=== PATIENT | female | born 1995 | race Caucasian/White ===

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

== ENCOUNTER → 2017-01-09 | Outpatient (CLI) | payer BC, OTHER, MEDICAID | LOC: M WUC 14:23 | PROVIDERS: ATTEND Registered Nurse Psychiatric/Mental Health | DX: F31.9 Bipolar disorder, unspecified (principal) ==

== ENCOUNTER → 2017-01-24 | Outpatient (CLI) | payer BC, OTHER, MEDICAID ==
[2017-01-24 18:33] LABS: BASO % 0.3 % (0.0-1.0); EOS # 0.1 K/mm3 (0.0-0.50); EOS % 1.1 % (0.0-3.0); LARGE UNSTAINED CELL # 0.1 K/mm3 (0.0-0.4); LARGE UNSTAINED CELL % 1.2 % (0.0-4.0); LYMPH # 1.5 K/mm3 (1.5-6.5); LYMPH % 17.9 % (24.0-44.0); MEAN CORPUSCULAR HEMOGLOBIN 28.9 pg (27.0-33.0); MEAN CORPUSCULAR HGB CONC 36.2 g/dl (32.0-36.5); MEAN CORPUSCULAR VOLUME 79.8 fl (80.0-96.0); MONO # 0.4 K/mm3 (0.0-0.8); NEUTROPHILS # 6.3 K/mm3 (1.8-7.7); NEUTROPHILS % 74.6 % (36.0-66.0); PLATELET COUNT, AUTOMATED 194 k/mm3 (150-450); RED CELL DISTRIBUTION WIDTH 13.2 % (11.5-14.5); WHITE BLOOD COUNT 8.5 K/mm3 (4.0-10.0)
[2017-01-26 07:43] LABS: HBsAg Prenatal NEGATIVE (NEGATIVE)
== END ==
LOC: M WUC 13:07
PROVIDERS: ATTEND Specialist
DX: Z34.81 Encounter for supervision of other normal pregnancy, first trimester (principal)

== ENCOUNTER → 2017-01-26 | Outpatient (REF) | payer OTHER, MEDICAID | LOC: M LAB REF 13:13 | PROVIDERS: ATTEND Specialist | DX: Z34.81 Encounter for supervision of other normal pregnancy, first trimester (principal) ==

== ENCOUNTER → 2017-04-04 | Outpatient (CLI) | payer BC, OTHER, MEDICAID ==
--- NOTE | 2017-04-04 11:53 | REP ---
Clinical: Anatomical evaluation. Comparison: None . Findings: Examination demonstrates a single live intrauterine in cephalic presentation. motion is identified by technologist. Placenta is noted anteriorly and grade zero without evidence for placenta previa or abruption. Amniotic fluid volume is normal. Cervix measures 3.5 cm in length and appears closed. No evidence for nuchal cord. Gestational age by current measurements 18 weeks 4 days with NANCY 09/01/2017 . FHR equals 150 beats per minute. BPD 4.4 cm 19 weeks 2 days HC 15.4 cm 18 weeks 3 days AC 12.7 cm 18 weeks 2 days FL 2.8 cm 18 weeks 4 days HL 2.8 cm 18 weeks 6 days HC/AC ratio 1.22 Estimated weight 241 grams ( 44 percentile). Anatomical assessment demonstrates normal structures including cranium, choroid plexus, cavum, cerebellum/posterior fossa, facial features, lungs, diaphragm, stomach, three-vessel cord, kidneys/bladder, spine, and upper extremities. Impression: 1. Single live intrauterine in cephalic presentation demonstrating appropriate weight. 2. Limited evaluation of the heart/cardiac ventricular outflow tracts, cord insertion, and lower extremities may warrant reevaluation and follow-up. Remainder of the anatomical assessment is complete and normal. Signed by Ramon Lima MD 04/04/2017 11:44 A
== END ==
LOC: M SMT 10:07
PROVIDERS: ATTEND Advanced Practice Midwife
DX: Z36.89 Encounter for other specified antenatal screening (principal); Z3A.18 18 weeks gestation of pregnancy

== ENCOUNTER → 2017-04-26 | Outpatient (CLI) | payer BC, OTHER, MEDICAID ==
--- NOTE | 2017-04-27 06:38 | REP ---
FOLLOWUP OBSTETRICAL ULTRASOUND: CLINICAL: Anatomical re-evaluation. COMPARISON: 04/04/2017. FINDINGS: Ultrasound examination demonstrates single live intrauterine in cephalic presentation. motion was identified by technologist. Placenta is noted anteriorly and grade 1 without evidence for placenta previa or abruption. Amniotic fluid volume is normal. Cervix measures 3.5 cm in length and appears closed. No evidence for nuchal cord. Gestational age by first ultrasound 21 weeks 5 days with estimated date of delivery 09/01/2017. FHR 150 beats per minute. Estimated weight 420 grams (37th percentile). Anatomical assessment is complete and normal. Visualized structures include cranium, choroid plexus, cavum, cerebellum/posterior fossa, facial features, lungs, four chamber heart/ventricular outflow tract, diaphragm, stomach, cord insertion/three vessel cord, kidneys/bladder, spine and extremities. IMPRESSION: Single live intrauterine in cephalic presentation demonstrating appropriate interval growth. Anatomical assessment is complete and normal. No gross abnormalities are identified. Signed by Ramon Lima MD 04/28/2017 08:43 A
== END ==
LOC: M SMT 12:57
PROVIDERS: ATTEND Advanced Practice Midwife
DX: Z36.9 Encounter for antenatal screening, unspecified (principal); Z3A.21 21 weeks gestation of pregnancy

== ENCOUNTER → 2017-05-22 | Outpatient (CLI) | payer MEDICARE, MEDICAID, BC, OTHER ==
[2017-05-22 13:38] LABS: HEMATOCRIT 35.4 % (36.0-47.0); HEMOGLOBIN 12.3 g/dl (12.0-16.0); MEAN CORPUSCULAR HEMOGLOBIN 29.6 pg (27.0-33.0); MEAN CORPUSCULAR HGB CONC 34.7 g/dl (32.0-36.5); MEAN CORPUSCULAR VOLUME 85.1 fl (80.0-96.0); PLATELET COUNT, AUTOMATED 147 10^3/uL (150-450); RED BLOOD COUNT 4.16 10^6/uL (4.00-5.40); RED CELL DISTRIBUTION WIDTH 13.2 % (11.5-14.5); WHITE BLOOD COUNT 7.8 10^3/uL (4.0-10.0)
[2017-05-22 13:53] LABS: GLUCOSE CHALLENGE TEST 1 HOUR 146 MG/DL (LESS THAN 140)
== END ==
LOC: M SMT 10:28
DX: Z34.82 Encounter for supervision of other normal pregnancy, second trimester (principal)
CPT/HCPCS: 82950

== ENCOUNTER → 2017-06-01 | Outpatient (CLI) | payer BC, MEDICARE, OTHER, MEDICAID ==
[2017-06-01 09:01] LABS: GLUCOSE, FASTING 90 MG/DL (LESS THAN 95)
[2017-06-01 10:24] LABS: 1 HR GLUCOSE 131 MG/DL (LESS THAN 180)
[2017-06-01 11:44] LABS: 3 HR GLUCOSE 117 MG/DL (LESS THAN 140)
[2017-06-01 12:23] LABS: 2 HR GLUCOSE 145 MG/DL (LESS THAN 155)
== END ==
LOC: M LAB 07:53
DX: Z34.82 Encounter for supervision of other normal pregnancy, second trimester (principal); Z3A.00 Weeks of gestation of pregnancy not specified
CPT/HCPCS: 82951

== ENCOUNTER 2017-07-12 19:18 | Emergency (ER) | payer BC, MEDICARE, OTHER, MEDICAID ==
[2017-07-12] MEDS: NS 1,000 ML IV ×2 (20:19)
[2017-07-12] MEDS: diphenhydrAMINE INJ 50MG/ML VIAL (J1200) IV ×2 (20:35)
[2017-07-12 20:42] LABS: BASO % 0.2 % (0.0-1.0); EOS # 0.1 10^3/uL (0.0-0.50); EOS % 0.9 % (0.0-3.0); HEMATOCRIT 37.5 % (36.0-47.0); HEMOGLOBIN 12.8 g/dl (12.0-16.0); IMMATURE GRANULOCYTE % 1.2 % (0-3.0); LYMPH # 1.9 10^3/uL (1.5-6.5); LYMPH % 19.4 % (24.0-44.0); MEAN CORPUSCULAR HEMOGLOBIN 29.2 pg (27.0-33.0); MEAN CORPUSCULAR HGB CONC 34.1 g/dl (32.0-36.5); MEAN CORPUSCULAR VOLUME 85.4 fl (80.0-96.0); MONO # 0.9 10^3/uL (0.0-0.8); NEUTROPHILS # 6.9 10^3/uL (1.8-7.7); NEUTROPHILS % 69.3 % (36.0-66.0); PLATELET COUNT, AUTOMATED 187 10^3/uL (150-450); RED BLOOD COUNT 4.39 10^6/uL (4.00-5.40); RED CELL DISTRIBUTION WIDTH 13.6 % (11.5-14.5); WHITE BLOOD COUNT 9.9 10^3/uL (4.0-10.0)
[2017-07-12 21:07] LABS: ALBUMIN 3.1 GM/DL (3.2-5.2); ALBUMIN/GLOBULIN RATIO 0.86 (1.00-1.93); ALKALINE PHOSPHATASE 142 U/L (45-117); ALT/SGPT 12 U/L (12-78); ANION GAP 10 MEQ/L (8-16); AST/SGOT 21 U/L (7-37); BILIRUBIN,TOTAL 0.3 MG/DL (0.2-1.0); BLOOD UREA NITROGEN 9 MG/DL (7-18); CALCIUM LEVEL 9.3 MG/DL (8.5-10.1); CARBON DIOXIDE LEVEL 23 MEQ/L (21-32); CHLORIDE LEVEL 106 MEQ/L (98-107); CREATININE FOR GFR 0.51 MG/DL (0.55-1.30); GLUCOSE, FASTING 88 MG/DL (70-100); LIPASE 81 U/L (73-393); POTASSIUM SERUM 4.5 MEQ/L (3.5-5.1); SODIUM LEVEL 139 MEQ/L (136-145); TOTAL PROTEIN 6.7 GM/DL (6.4-8.2)
[2017-07-12] MEDS ORDERED: PANTOPRAZOLE SODIUM 40 MG in D5W 50 ML IV (21:15)
[2017-07-12] MEDS: ACETAMINOPHEN 325 MG TAB PO ×2 (21:15)
[2017-07-12 22:25] LABS: KETONE, URINE AUTO RFX NEGATIVE (NEGATIVE); LEUKOCYTE ESTERASE UR AUTO RFX NEGATIVE (NEGATIVE); NITRITE, URINE AUTO RFX NEGATIVE (NEGATIVE); RBC, URINE AUTO RFX 0 /HPF (0-3); SPECIFIC GRAVITY UR AUTO RFX 1.002 (1.002-1.035); SQUAM EPITHELIAL CELL UR AURFX 4 /HPF (0-6); WBC, URINE AUTO RFX 1 /HPF (0-3)
== END 2017-07-12 22:25 | disposition home or self-care (01) ==
LOC: M ED 19:18
DX: O21.9 Vomiting of pregnancy, unspecified (principal); Z3A.33 33 weeks gestation of pregnancy; Z79.899 Other long term (current) drug therapy; Z88.8 Allergy status to other drugs, medicaments and biological substances; Z91.040 Latex allergy status; O99.333 Smoking (tobacco) complicating pregnancy, third trimester; F17.210 Nicotine dependence, cigarettes, uncomplicated
CPT/HCPCS: J1200

== ENCOUNTER 2017-08-01 18:37 | Outpatient (CLI) | payer BC, MEDICARE, OTHER, MEDICAID | END 2017-08-01 23:25 | disposition home or self-care (01) | LOC: M LDO 18:37 | DX: O47.03 False labor before 37 completed weeks of gestation, third trimester (principal); Z3A.35 35 weeks gestation of pregnancy; N89.8 Other specified noninflammatory disorders of vagina; O26.893 Other specified pregnancy related conditions, third trimester; Z88.8 Allergy status to other drugs, medicaments and biological substances; Z91.040 Latex allergy status | CPT/HCPCS: 59025 ==

== ENCOUNTER → 2017-08-03 | Outpatient (REF) | payer MEDICARE, OTHER, MEDICAID | LOC: M LAB REF 13:08 | DX: Z34.83 Encounter for supervision of other normal pregnancy, third trimester (principal); Z3A.00 Weeks of gestation of pregnancy not specified | CPT/HCPCS: 87081 ==

== ENCOUNTER 2017-08-16 17:53 | Outpatient (CLI) | payer MEDICARE, BC, OTHER, MEDICAID ==
[2017-08-16] MEDS: MORPHINE 10 MG/ML 1ML VIAL (J2270) SC (21:46)
[2017-08-16] MEDS: PROMETHAZINE INJ 25 MG/ML VIAL (J2550) IM (21:48)
== END 2017-08-17 09:12 | disposition home or self-care (01) ==
LOC: M LDO 17:53
DX: O47.1 False labor at or after 37 completed weeks of gestation (principal); Z3A.38 38 weeks gestation of pregnancy
CPT/HCPCS: J2270

== ENCOUNTER 2017-08-20 02:15 | Inpatient (IN) | payer MEDICARE, BC, OTHER, MEDICAID ==
[2017-08-20] MEDS: LACTATED RINGER'S 1000 ML IV (03:25)
[2017-08-20] MEDS ORDERED: MORPHINE 10 MG/ML 1ML VIAL (J2270) SC (03:45)
[2017-08-20] MEDS: PROMETHAZINE INJ 25 MG/ML VIAL (J2550) IV (03:53)
[2017-08-20] MEDS: BUTORPHANOL 2 MG/ML INJ (J0595) IV (03:54)
[2017-08-20] MEDS: LR 1,000 ML IV ×3 (03:54→19:33)
[2017-08-20] MEDS: miSOPROStol 50 MCG 1/2 TAB (S0191) SL ×4 (04:01→17:49)
[2017-08-20 04:03] LABS: HEMATOCRIT 37.9 % (36.0-47.0); HEMOGLOBIN 13.1 g/dl (12.0-15.5); MEAN CORPUSCULAR HEMOGLOBIN 29.4 pg (27.0-33.0); MEAN CORPUSCULAR HGB CONC 34.6 g/dl (32.0-36.5); MEAN CORPUSCULAR VOLUME 85.2 fl (80.0-96.0); PLATELET COUNT, AUTOMATED 141 10^3/uL (150-450); RED BLOOD COUNT 4.45 10^6/uL (4.00-5.40); RED CELL DISTRIBUTION WIDTH 13.6 % (11.5-14.5); WHITE BLOOD COUNT 14.4 10^3/uL (4.0-10.0)
[2017-08-20 04:30] LABS: ALT/SGPT 105 U/L (12-78); AST/SGOT 131 U/L (7-37); BILIRUBIN,TOTAL 0.5 MG/DL (0.2-1.0); CREATININE FOR GFR 0.89 MG/DL (0.55-1.30); LDH LACTATE DEHYDROGENASE 348 U/L (84-246)
[2017-08-20 07:02] LABS: AMPHETAMINES URINE REFLEX NEGATIVE (NEGATIVE); BARBITURATES URINE REFLEX NEGATIVE (NEGATIVE); BENZODIAZEPINES URINE REFLEX NEGATIVE (NEGATIVE); CANNABINOIDS URINE REFLEX NEGATIVE (NEGATIVE); COCAINE METABOLITE URINE REFLE NEGATIVE (NEGATIVE); METHADONE URINE REFLEX NEGATIVE (NEGATIVE); OPIATES URINE REFLEX NEGATIVE (NEGATIVE); PHENCYCLIDINE URINE REFLEX NEGATIVE (NEGATIVE)
[2017-08-20 07:03] LABS: TOTAL PROTEIN,RANDOM URINE 71.8 MG/DL (0.0-12.0)
[2017-08-20 19:22] LABS: HEMATOCRIT 35.7 % (36.0-47.0); HEMOGLOBIN 12.6 g/dl (12.0-15.5); MEAN CORPUSCULAR HEMOGLOBIN 30.2 pg (27.0-33.0); MEAN CORPUSCULAR HGB CONC 35.3 g/dl (32.0-36.5); MEAN CORPUSCULAR VOLUME 85.6 fl (80.0-96.0); RED BLOOD COUNT 4.17 10^6/uL (4.00-5.40); RED CELL DISTRIBUTION WIDTH 13.8 % (11.5-14.5); WHITE BLOOD COUNT 11.8 10^3/uL (4.0-10.0)
[2017-08-20] MEDS: LURASIDONE HCL 40 MG TAB (LATUDA) PO (19:28)
[2017-08-20 19:43] LABS: PLATELET COUNT, AUTOMATED 58 10^3/uL (150-450); POS COUNT POS FLAG
[2017-08-20 19:44] LABS: IMMATURE PLATELET FRACTION % 11.3 % (0.0-9.6)
[2017-08-20 19:48] LABS: ALT/SGPT 197 U/L (12-78); AST/SGOT 202 U/L (7-37); BILIRUBIN,TOTAL 0.9 MG/DL (0.2-1.0); CREATININE FOR GFR 0.79 MG/DL (0.55-1.30); LDH LACTATE DEHYDROGENASE 441 U/L (84-246); URIC ACID 6.1 MG/DL (2.6-6.0)
[2017-08-20] MEDS ORDERED: LR 1,000 ML IV ×2 (20:44→22:30)
[2017-08-20] MEDS ORDERED: LACTATED RINGER'S 1000 ML IV (20:44)
[2017-08-20 20:51] LABS: HEMATOCRIT 33.5 % (36.0-47.0); HEMOGLOBIN 11.7 g/dl (12.0-15.5); MEAN CORPUSCULAR HEMOGLOBIN 30.2 pg (27.0-33.0); MEAN CORPUSCULAR HGB CONC 34.9 g/dl (32.0-36.5); MEAN CORPUSCULAR VOLUME 86.3 fl (80.0-96.0); RED BLOOD COUNT 3.88 10^6/uL (4.00-5.40); RED CELL DISTRIBUTION WIDTH 13.8 % (11.5-14.5); WHITE BLOOD COUNT 11.3 10^3/uL (4.0-10.0)
[2017-08-20 20:53] LABS: ADD MANUAL DIFFER YES; DIFF SLIDE NUMBER 360; PLATELET COUNT, AUTOMATED 47 10^3/uL (150-450)
[2017-08-20] MEDS ORDERED: PROPOFOL 200 MG/20 ML VIAL As Ordered (20:56)
[2017-08-20] MEDS ORDERED: SUCCINYLCHOLINE 100 MG/5 ML SYRINGE (J0330) As Ordered (20:56)
[2017-08-20] MEDS ORDERED: ONDANSETRON 4MG/2ML VIAL (J2405) As Ordered (20:56)
[2017-08-20] MEDS ORDERED: METOCLOPRAMIDE INJ 10MG/2ML VIAL (J2765) As Ordered (20:56)
[2017-08-20] MEDS ORDERED: MIDAZOLAM INJ 2 MG/2 ML VIAL (J2250) As Ordered (20:56)
[2017-08-20] MEDS ORDERED: fentaNYL 100 MCG/2 ML INJECTION (J3010) As Ordered ×3 (20:57→22:16)
[2017-08-20] MEDS: BICITRA 30ML SOLN UDC PO (21:01)
[2017-08-20 21:08] LABS: BANDS 3 % (< 11); EOSINOPHILS 3 % (0-5); LYMPHOCYTES 11 % (16-52); METAMYELOCYTES 4 % (0-0); MONOCYTES 5 % (0-8); MYELOCYTES 1 % (0-0); NEUTROPHILS 73 % (35-75)
[2017-08-20 21:09] LABS: PLATELET ESTIMATE DECREASED (NORMAL)
[2017-08-20 21:32] LABS: IMMEDIATE SPIN CROSSMATCH 1 2
[2017-08-20 21:45] LABS: CORD GAS HCO3 A 34.8 MEQ/L; CORD GAS O2 SAT A < 15.0 %; CORD GAS PCO2 A 92.1 mmHg; CORD GAS PH A 7.195 UNITS; CORD GAS PO2 A < 10.0 mmHg; CORD GAS TCO2 A 37.6 MEQ/L
[2017-08-20 21:47] LABS: CORD GAS ABE V -0.1; CORD GAS PCO2 V 69.1 mmHg; CORD GAS PH V 7.255 UNITS; CORD GAS TCO2 V 32.1 MEQ/L
[2017-08-20] MEDS ORDERED: NS 1,000 ML IV (22:12)
[2017-08-20] MEDS ORDERED: NALBUPHINE HCL 10 MG/ML AMP (J2300) IV (22:15)
[2017-08-20] MEDS ORDERED: MOM 30ML SUSPENSION UDC PO (22:15)
[2017-08-20] MEDS ORDERED: ONDANSETRON 4MG/2ML VIAL (J2405) IV ×2 (22:15→22:30)
[2017-08-20] MEDS ORDERED: EPIDURAL/PCA KEYS XX (22:15)
[2017-08-20] MEDS ORDERED: NALOXONE INJ 0.4 MG/1 ML VIAL (J2310) IV (22:15)
[2017-08-20] MEDS: OXYTOCIN DRIP 30 UNITS in APPROPRIATE DILUENT 1 EA IV (22:15)
[2017-08-20] MEDS ORDERED: diphenhydrAMINE INJ 50MG/ML VIAL (J1200) IV (22:15)
[2017-08-20] MEDS ORDERED: CALCIUM GLUCONATE 1,000 MG in D5W MINI-BAG PLUS 100 ML IV (22:15)
[2017-08-20] MEDS: MAG Sulf (L&D) 4 GM/100 ML 4 GM in APPROPRIATE DILUENT 1 EA IV (22:15)
[2017-08-20] MEDS ORDERED: DOCUSATE SODIUM 100 MG CAP PO ×2 (22:15)
[2017-08-20] MEDS: fentaNYL 100 MCG/2 ML INJECTION (J3010) IV ×2 (22:20→22:50)
[2017-08-20] MEDS ORDERED: MAGNESIUM *L&D* 4 GM/100 ML BAG (40MG/ML) (J3475) As Ordered (22:23)
[2017-08-20] MEDS ORDERED: MAGNESIUM SULFATE 4% INJ 20GM/500ML (40MG/ML) (J3475) As Ordered (22:24)
[2017-08-20] MEDS ORDERED: OXYTOCIN 30 UNITS IN 0.9% NaCl 500ML IV BAG (J2590) As Ordered (22:25)
[2017-08-20] MEDS ORDERED: PERCOCET 5MG/325MG TAB PO (22:30)
[2017-08-20] MEDS ORDERED: METOCLOPRAMIDE INJ 10MG/2ML VIAL (J2765) IV (22:30)
[2017-08-20] MEDS ORDERED: MEPERIDINE INJ 25 MG/ML VIAL (J2175) IV (22:30)
[2017-08-20] MEDS ORDERED: MORPHINE 1MG/ML IN 0.9% NACL 100ML IV BAG As Ordered (22:48)
[2017-08-20] MEDS: MORPHINE 1MG/ML IN 0.9% NACL 100ML IV BAG IV (23:06)
[2017-08-21 02:40] LABS: HEMATOCRIT 33.3 % (36.0-47.0); HEMOGLOBIN 11.5 g/dl (12.0-15.5); MEAN CORPUSCULAR HEMOGLOBIN 29.4 pg (27.0-33.0); MEAN CORPUSCULAR HGB CONC 34.5 g/dl (32.0-36.5); MEAN CORPUSCULAR VOLUME 85.2 fl (80.0-96.0); RED BLOOD COUNT 3.91 10^6/uL (4.00-5.40); RED CELL DISTRIBUTION WIDTH 13.9 % (11.5-14.5); WHITE BLOOD COUNT 12.2 10^3/uL (4.0-10.0)
[2017-08-21 02:42] LABS: PLATELET COUNT, AUTOMATED 45 10^3/uL (150-450)
[2017-08-21 02:55] LABS: ALT/SGPT 128 U/L (12-78); AST/SGOT 111 U/L (7-37); BILIRUBIN,TOTAL 0.6 MG/DL (0.2-1.0); CREATININE FOR GFR 0.71 MG/DL (0.55-1.30); LDH LACTATE DEHYDROGENASE 422 U/L (84-246); URIC ACID 5.1 MG/DL (2.6-6.0)
[2017-08-21 06:34] LABS: HEMATOCRIT 25.5 % (36.0-47.0); MEAN CORPUSCULAR HEMOGLOBIN 30.3 pg (27.0-33.0); MEAN CORPUSCULAR HGB CONC 35.3 g/dl (32.0-36.5); MEAN CORPUSCULAR VOLUME 85.9 fl (80.0-96.0); RED BLOOD COUNT 2.97 10^6/uL (4.00-5.40); RED CELL DISTRIBUTION WIDTH 13.8 % (11.5-14.5); WHITE BLOOD COUNT 13.9 10^3/uL (4.0-10.0)
[2017-08-21 07:01] LABS: PLATELET COUNT, AUTOMATED 48 10^3/uL (150-450); POS COUNT POS FLAG
[2017-08-21 07:10] LABS: ALT/SGPT 102 U/L (12-78); AST/SGOT 84 U/L (7-37); BILIRUBIN,TOTAL 0.5 MG/DL (0.2-1.0); CREATININE FOR GFR 0.69 MG/DL (0.55-1.30); LDH LACTATE DEHYDROGENASE 374 U/L (84-246); URIC ACID 5.4 MG/DL (2.6-6.0)
[2017-08-21 07:12] LABS: MAGNESIUM LEVEL 5.2 MG/DL (1.8-2.4)
[2017-08-21] MEDS: MAG Sulf (OBGYN) 20GM/500ML 20,000 MG in APPROPRIATE DILUENT 1 EA IV (09:25)
[2017-08-21] MEDS: LR 1,000 ML IV ×2 (11:32→17:13)
[2017-08-21 12:02] LABS: BASO % 0.2 % (0.0-1.0); EOS # 0.3 10^3/uL (0.0-0.50); EOS % 2.5 % (0.0-3.0); HEMATOCRIT 25.6 % (36.0-47.0); HEMOGLOBIN 8.8 g/dl (12.0-15.5); IMMATURE GRANULOCYTE % 1.9 % (0-3.0); LYMPH # 1.4 10^3/uL (1.5-6.5); LYMPH % 11.7 % (24.0-44.0); MEAN CORPUSCULAR HEMOGLOBIN 29.8 pg (27.0-33.0); MEAN CORPUSCULAR HGB CONC 34.4 g/dl (32.0-36.5); MEAN CORPUSCULAR VOLUME 86.8 fl (80.0-96.0); MONO % 8.3 % (0.0-5.0); NEUTROPHILS # 9.1 10^3/uL (1.8-7.7); NEUTROPHILS % 75.4 % (36.0-66.0); RED BLOOD COUNT 2.95 10^6/uL (4.00-5.40); RED CELL DISTRIBUTION WIDTH 14.1 % (11.5-14.5); WHITE BLOOD COUNT 12.1 10^3/uL (4.0-10.0)
[2017-08-21 12:09] LABS: PLATELET COUNT, AUTOMATED 42 10^3/uL (150-450)
[2017-08-21 12:42] LABS: ALT/SGPT 106 U/L (12-78); AST/SGOT 91 U/L (7-37); BILIRUBIN,TOTAL 0.7 MG/DL (0.2-1.0); CREATININE FOR GFR 0.74 MG/DL (0.55-1.30); LDH LACTATE DEHYDROGENASE 415 U/L (84-246)
[2017-08-21] MEDS: RHOGAM 300 MCG (1500 IU) INJ (J2790) IM ×2 (16:42→16:44)
[2017-08-21] MEDS: MEASLES,MUMPS,RUBELLA VACCINE INJ (MMR-II) (90707) SC (16:49)
[2017-08-21] MEDS: PRENATAL VITAMINS CHEWABLE TABLET PO (18:21)
[2017-08-21] MEDS ORDERED: PERCOCET 5MG/325MG TAB PO (22:15)
[2017-08-21] MEDS: PERCOCET 5MG/325MG TAB PO (22:29)
[2017-08-22] MEDS: PERCOCET 5MG/325MG TAB PO (05:14)
[2017-08-22 06:09] LABS: HEMATOCRIT 24.1 % (36.0-47.0); HEMOGLOBIN 8.2 g/dl (12.0-15.5); MEAN CORPUSCULAR HEMOGLOBIN 29.2 pg (27.0-33.0); MEAN CORPUSCULAR VOLUME 85.8 fl (80.0-96.0); RED BLOOD COUNT 2.81 10^6/uL (4.00-5.40); RED CELL DISTRIBUTION WIDTH 14.2 % (11.5-14.5); WHITE BLOOD COUNT 8.9 10^3/uL (4.0-10.0)
[2017-08-22 06:13] LABS: PLATELET COUNT, AUTOMATED 28 10^3/uL (150-450); POS COUNT POS FLAG
[2017-08-22 06:14] LABS: ALT/SGPT 121 U/L (12-78); AST/SGOT 103 U/L (7-37); BILIRUBIN,TOTAL 0.8 MG/DL (0.2-1.0); CREATININE FOR GFR 0.67 MG/DL (0.55-1.30); LDH LACTATE DEHYDROGENASE 565 U/L (84-246); PLATELET F 28; URIC ACID 5.8 MG/DL (2.6-6.0)
[2017-08-22] MEDS: PRENATAL VITAMINS CHEWABLE TABLET PO (09:13)
[2017-08-22] MEDS: oxyCODONE 5MG TAB PO ×4 (10:25→20:50)
[2017-08-22] MEDS ORDERED: LOPERAMIDE 2 MG CAP PO (11:15)
[2017-08-22 11:16] LABS: HEMATOCRIT 26.4 % (36.0-47.0); HEMOGLOBIN 9.2 g/dl (12.0-15.5); MEAN CORPUSCULAR HEMOGLOBIN 30.3 pg (27.0-33.0); MEAN CORPUSCULAR HGB CONC 34.8 g/dl (32.0-36.5); MEAN CORPUSCULAR VOLUME 86.8 fl (80.0-96.0); RED BLOOD COUNT 3.04 10^6/uL (4.00-5.40); RED CELL DISTRIBUTION WIDTH 14.5 % (11.5-14.5); WHITE BLOOD COUNT 15.1 10^3/uL (4.0-10.0)
[2017-08-22] MEDS: CARBOPROST TROMETHAMINE 250 MCG/ML AMP IM (11:17)
[2017-08-22 11:28] LABS: PLATELET COUNT, AUTOMATED 36 10^3/uL (150-450)
[2017-08-22] MEDS: LURASIDONE HCL 40 MG TAB (LATUDA) PO ×3 (20:33→20:49)
[2017-08-23] MEDS: LR 1,000 ML IV ×3 (03:32→19:28)
[2017-08-23] MEDS: oxyCODONE 5MG TAB PO ×3 (04:15→21:37)
[2017-08-23 07:50] LABS: ALT/SGPT 85 U/L (12-78); AST/SGOT 41 U/L (7-37); BILIRUBIN,TOTAL 0.5 MG/DL (0.2-1.0); CREATININE FOR GFR 0.81 MG/DL (0.55-1.30); LDH LACTATE DEHYDROGENASE 314 U/L (84-246); URIC ACID 6.4 MG/DL (2.6-6.0)
[2017-08-23] MEDS: PRENATAL VITAMINS CHEWABLE TABLET PO (07:50)
[2017-08-23] MEDS: IBUPROFEN 800 MG TAB PO (14:09)
[2017-08-23] MEDS: LURASIDONE HCL 40 MG TAB (LATUDA) PO (23:27)
[2017-08-24 07:16] LABS: HEMOGLOBIN 8.4 g/dl (12.0-15.5); MEAN CORPUSCULAR HEMOGLOBIN 29.8 pg (27.0-33.0); MEAN CORPUSCULAR HGB CONC 33.6 g/dl (32.0-36.5); MEAN CORPUSCULAR VOLUME 88.7 fl (80.0-96.0); PLATELET COUNT, AUTOMATED 83 10^3/uL (150-450); RED BLOOD COUNT 2.82 10^6/uL (4.00-5.40); RED CELL DISTRIBUTION WIDTH 14.4 % (11.5-14.5); WHITE BLOOD COUNT 8.4 10^3/uL (4.0-10.0)
[2017-08-24 07:17] LABS: IMMATURE PLATELET FRACTION % 11.4 % (0.0-9.6); PLATELET F 83
[2017-08-24] MEDS: IBUPROFEN 800 MG TAB PO (07:26)
[2017-08-24] MEDS: PRENATAL VITAMINS CHEWABLE TABLET PO (07:26)
[2017-08-24 07:38] LABS: ALBUMIN 2.1 GM/DL (3.2-5.2); ALBUMIN/GLOBULIN RATIO 0.57 (1.00-1.93); ALKALINE PHOSPHATASE 136 U/L (45-117); ALT/SGPT 62 U/L (12-78); ANION GAP 8 MEQ/L (8-16); AST/SGOT 31 U/L (7-37); BILIRUBIN,TOTAL 0.3 MG/DL (0.2-1.0); BLOOD UREA NITROGEN 14 MG/DL (7-18); CALCIUM LEVEL 8.2 MG/DL (8.5-10.1); CARBON DIOXIDE LEVEL 24 MEQ/L (21-32); CHLORIDE LEVEL 110 MEQ/L (98-107); CREATININE FOR GFR 0.72 MG/DL (0.55-1.30); GLUCOSE, FASTING 83 MG/DL (70-100); LDH LACTATE DEHYDROGENASE 207 U/L (84-246); POTASSIUM SERUM 4.1 MEQ/L (3.5-5.1); SODIUM LEVEL 142 MEQ/L (136-145); TOTAL PROTEIN 5.8 GM/DL (6.4-8.2); URIC ACID 6.2 MG/DL (2.6-6.0)
[2017-08-24] MEDS: FERROUS SULFATE 325MG TAB PO (08:42)
== END 2017-08-24 17:00 | disposition home or self-care (01) | DRG 766 ==
LOC: M LDO 02:15 → M OBS 08-22 08:00 → M LDI 03:43
PROC: 10D00Z1 Extraction of Products of Conception, Low, Open Approach (ICD-10-PCS; principal; 2017-08-20 21:07)
DX: O14.24 HELLP syndrome, complicating childbirth (principal); Z37.0 Single live birth; Z88.8 Allergy status to other drugs, medicaments and biological substances; Z91.040 Latex allergy status; Z3A.39 39 weeks gestation of pregnancy

== ENCOUNTER 2017-11-29 14:03 | Inpatient (IN) | payer MEDICARE, BC, OTHER, MEDICAID ==
[2017-11-29] MEDS: NS 1,000 ML IV (14:30)
[2017-11-29 14:40] LABS: BASO % 0.3 % (0.0-1.0); EOS # 0.1 10^3/uL (0.0-0.50); EOS % 0.8 % (0.0-3.0); HEMATOCRIT 40.8 % (36.0-47.0); HEMOGLOBIN 13.9 g/dl (12.0-15.5); IMMATURE GRANULOCYTE % 0.8 % (0-3.0); LYMPH # 1.7 10^3/uL (1.5-6.5); LYMPH % 18.4 % (24.0-44.0); MEAN CORPUSCULAR HEMOGLOBIN 27.1 pg (27.0-33.0); MEAN CORPUSCULAR HGB CONC 34.1 g/dl (32.0-36.5); MEAN CORPUSCULAR VOLUME 79.7 fl (80.0-96.0); MONO # 0.8 10^3/uL (0.0-0.8); MONO % 9.3 % (0.0-5.0); NEUTROPHILS # 6.3 10^3/uL (1.8-7.7); NEUTROPHILS % 70.4 % (36.0-66.0); PLATELET COUNT, AUTOMATED 177 10^3/uL (150-450); RED BLOOD COUNT 5.12 10^6/uL (4.00-5.40); RED CELL DISTRIBUTION WIDTH 13.2 % (11.5-14.5)
[2017-11-29 14:42] LABS: VENOUS BASE EXCESS -6.7 (-2.0-2.0); VENOUS HCO3 16.1 MEQ/L (23.0-27.0); VENOUS O2 SATURATION 98.7 % (60.0-80.0); VENOUS PARTIAL PRESSURE CO2 25.1 mmHg (38.0-50.0); VENOUS PARTIAL PRESSURE O2 148.6 mmHg (30.0-50.0); VENOUS PH 7.426 UNITS (7.330-7.430); VENOUS TOTAL CO2 16.9 MEQ/L (24.0-28.0)
[2017-11-29 14:53] LABS: BEDSIDE GLUCOSE 108 MG/DL (70-105)
[2017-11-29 15:31] LABS: ALBUMIN 3.7 GM/DL (3.2-5.2); ALBUMIN/GLOBULIN RATIO 1.09 (1.00-1.93); ALKALINE PHOSPHATASE 116 U/L (45-117); ALT/SGPT 39 U/L (12-78); ANION GAP 10 MEQ/L (8-16); AST/SGOT 19 U/L (7-37); BILIRUBIN,DIRECT < 0.1 MG/DL (0.0-0.2); BILIRUBIN,TOTAL 0.4 MG/DL (0.2-1.0); BLOOD UREA NITROGEN 16 MG/DL (7-18); CALCIUM LEVEL 8.5 MG/DL (8.5-10.1); CARBON DIOXIDE LEVEL 22 MEQ/L (21-32); CHLORIDE LEVEL 109 MEQ/L (98-107); CPK CREATINE PHOSPHOKINASE 67 U/L (26-192); CREATININE FOR GFR 0.84 MG/DL (0.55-1.30); ETHYL ALCOHOL (ETHANOL) 0.007 % (0.000-0.010); GLUCOSE, FASTING 96 MG/DL (70-100); POTASSIUM SERUM 4.2 MEQ/L (3.5-5.1); SALICYLATE LEVEL < 1.7 MG/DL (5.0-30.0); SODIUM LEVEL 141 MEQ/L (136-145); THYROID STIMULATING HORMONE 0.454 uIU/ML (0.463-3.98); TOTAL PROTEIN 7.1 GM/DL (6.4-8.2)
[2017-11-29 15:37] LABS: ACETAMINOPHEN LEVEL < 2.0 UG/ML (10.0-30.0)
[2017-11-29 16:33] LABS: AMPHETAMINES LEVEL URINE NEGATIVE (NEGATIVE); BARBITURATES URINE NEGATIVE (NEGATIVE); BENZODIAZEPINES URINE NEGATIVE (NEGATIVE); CANNABINOIDS URINE NEGATIVE (NEGATIVE); COCAINE METABOLITE URINE NEGATIVE (NEGATIVE); METHADONE URINE NEGATIVE (NEGATIVE); OPIATES URINE NEGATIVE (NEGATIVE); PHENCYCLIDINE URINE NEGATIVE (NEGATIVE)
[2017-11-29] MEDS: LORazepam 2 MG TAB PO (18:50)
[2017-11-29 18:53] LABS: CONTROL LINE HCG INT CTR LINE PRESENT; HCG, SERUM QUALITATIVE NEGATIVE (NEGATIVE)
[2017-11-29] MEDS ORDERED: MOM 30ML SUSPENSION UDC PO (21:00)
[2017-11-29] MEDS ORDERED: ACETAMINOPHEN TAB 650MG DOSE (2X325MG) PO (21:00)
[2017-11-29] MEDS ORDERED: MAALOX 30 ML SUSP *UDC PO (21:00)
[2017-11-29] MEDS: traZODone 50 MG TAB PO (21:52)
[2017-11-30] MEDS: LORazepam 1 MG TAB PO (12:22)
[2017-11-30] MEDS: traZODone 100 MG TAB PO (19:11)
[2017-11-30] MEDS: LITHIUM CARBONATE 300 MG CAP PO (21:00)
[2017-11-30] MEDS: cloNIDine 0.1 MG TAB PO (21:00)
[2017-12-01] MEDS: LORazepam 1 MG TAB PO (07:19)
[2017-12-01 11:17] LABS: FREE THYROXINE INDEX 4.3 % (1.3-4.8); T UPTAKE 34 % (30-39); THYROID STIMULATING HORMONE 0.804 uIU/ML (0.463-3.98); THYROXINE (T4) 12.6 UG/DL (6.0-11.6)
[2017-12-01] MEDS: LITHIUM CARBONATE 300 MG CAP PO (13:47)
[2017-12-01] MEDS: traZODone 50 MG TAB PO (20:23)
[2017-12-01] MEDS: cloNIDine 0.1 MG TAB PO (20:23)
[2017-12-02] MEDS: LITHIUM CARBONATE 300 MG CAP PO ×2 (09:14→21:40)
[2017-12-02] MEDS: traZODone 50 MG TAB PO (21:40)
[2017-12-03 08:03] LABS: LITHIUM LEVEL 0.24 MEQ/L (0.60-1.20)
[2017-12-03] MEDS: LITHIUM CARBONATE 300 MG CAP PO ×2 (09:02→21:22)
[2017-12-03] MEDS: traZODone 50 MG TAB PO (21:22)
[2017-12-04] MEDS: LITHIUM CARBONATE 300 MG CAP PO ×2 (08:46→21:04)
[2017-12-04] MEDS: traZODone 50 MG TAB PO (21:04)
[2017-12-05 07:14] LABS: LITHIUM LEVEL 0.35 MEQ/L (0.60-1.20)
[2017-12-05] MEDS: LITHIUM CARBONATE 300 MG CAP PO (08:09)
== END 2017-12-05 12:55 | disposition home or self-care (01) | DRG 885 ==
LOC: M PSY 11-30 15:10 → M ED 14:03 → M PSY 20:21
DX: F31.9 Bipolar disorder, unspecified (principal); F70 Mild intellectual disabilities; Z91.5 Personal history of self-harm; F17.210 Nicotine dependence, cigarettes, uncomplicated; R94.6 Abnormal results of thyroid function studies; Z91.040 Latex allergy status; Z88.1 Allergy status to other antibiotic agents; Z88.8 Allergy status to other drugs, medicaments and biological substances

== ENCOUNTER → 2017-12-13 | Outpatient (REF) | payer MEDICARE, OTHER, MEDICAID ==
[2017-12-13 21:13] LABS: CHLAMYDIA DNA AMPLIFICATION NEGATIVE (NEGATIVE); GC DNA AMPLIFICATION NEGATIVE (NEGATIVE)
== END ==
LOC: M LAB REF 17:27
DX: Z11.3 Encounter for screening for infections with a predominantly sexual mode of transmission (principal); R79.89 Other specified abnormal findings of blood chemistry; F32.9 Major depressive disorder, single episode, unspecified; F41.9 Anxiety disorder, unspecified; Z68.33 Body mass index [BMI] 33.0-33.9, adult
CPT/HCPCS: 87591

== ENCOUNTER → 2017-12-13 | Outpatient (CLI) | payer MEDICARE, OTHER, MEDICAID ==
[2017-12-13 18:02] LABS: ALBUMIN 3.9 GM/DL (3.2-5.2); ALBUMIN/GLOBULIN RATIO 1.08 (1.00-1.93); ALKALINE PHOSPHATASE 113 U/L (45-117); ALT/SGPT 39 U/L (12-78); ANION GAP 9 MEQ/L (8-16); AST/SGOT 15 U/L (7-37); BILIRUBIN,TOTAL 0.5 MG/DL (0.2-1.0); BLOOD UREA NITROGEN 15 MG/DL (7-18); CALCIUM LEVEL 9.1 MG/DL (8.5-10.1); CARBON DIOXIDE LEVEL 25 MEQ/L (21-32); CHLORIDE LEVEL 108 MEQ/L (98-107); CREATININE FOR GFR 0.79 MG/DL (0.55-1.30); FREE T4 1.19 NG/DL (0.78-1.33); GLUCOSE, FASTING 82 MG/DL (70-100); POTASSIUM SERUM 4.1 MEQ/L (3.5-5.1); SODIUM LEVEL 142 MEQ/L (136-145); THYROID STIMULATING HORMONE 0.443 uIU/ML (0.463-3.98); TOTAL PROTEIN 7.5 GM/DL (6.4-8.2)
== END ==
LOC: M WUC 14:13
DX: R79.89 Other specified abnormal findings of blood chemistry (principal); F41.9 Anxiety disorder, unspecified; F32.9 Major depressive disorder, single episode, unspecified; Z68.33 Body mass index [BMI] 33.0-33.9, adult; Z11.3 Encounter for screening for infections with a predominantly sexual mode of transmission
CPT/HCPCS: 84443

== ENCOUNTER → 2017-12-13 | Outpatient (REF) | payer MEDICARE, OTHER, MEDICAID | LOC: M SFHCPLAZ 12:00 | DX: R79.89 Other specified abnormal findings of blood chemistry (principal); Z68.33 Body mass index [BMI] 33.0-33.9, adult; Z53.8 Procedure and treatment not carried out for other reasons ==

== ENCOUNTER → 2018-01-08 | Outpatient (CLI) | payer MEDICARE, OTHER, MEDICAID ==
[2018-01-08 17:02] LABS: LITHIUM LEVEL 0.32 MEQ/L (0.60-1.20)
== END ==
LOC: M WUC 11:40
DX: F31.4 Bipolar disorder, current episode depressed, severe, without psychotic features (principal)
CPT/HCPCS: 80178

== ENCOUNTER → 2018-03-03 | Outpatient (CLI) | payer MEDICARE, OTHER, MEDICAID ==
[2018-03-03 13:43] LABS: LITHIUM LEVEL 0.68 MEQ/L (0.60-1.20)
== END ==
LOC: M WUC 10:43
DX: F31.4 Bipolar disorder, current episode depressed, severe, without psychotic features (principal)
CPT/HCPCS: 80178

== ENCOUNTER → 2018-04-18 | Outpatient (CLI) | payer MEDICARE, OTHER, MEDICAID ==
[2018-04-18 17:19] LABS: FREE T3 3.1 PG/ML (2.9-4.5); FREE T4 1.08 NG/DL (0.78-1.33)
== END ==
LOC: M WUC 12:15
DX: E05.90 Thyrotoxicosis, unspecified without thyrotoxic crisis or storm (principal); R79.89 Other specified abnormal findings of blood chemistry
CPT/HCPCS: 84443

== ENCOUNTER → 2018-06-21 | Outpatient (CLI) | payer MEDICARE, OTHER, MEDICAID ==
[~2018-06-21] MED LIST changes: +DRAM50TA7 PO; +FERR325T3 PO; +LATU1TAB PO; +LATU80TA PO; +LITH300C PO; +LORA0.5T11; +MAPA500T2 PO; +MOTR200T44 PO; +OXYC-517 PO; +PRENTAB9 PO; +TRAZO50TA PO; +TUMS500C PO; +prenatal
[2018-06-21 14:10] LABS: ALBUMIN 4.2 GM/DL (3.2-5.2); ALT/SGPT 22 U/L (12-78); BILIRUBIN,TOTAL 0.5 MG/DL (0.2-1.0); BLOOD UREA NITROGEN 17 MG/DL (7-18); CALCIUM LEVEL 9.1 MG/DL (8.5-10.1); CARBON DIOXIDE LEVEL 23 MEQ/L (21-32); CHLORIDE LEVEL 109 MEQ/L (98-107); CHOLESTEROL LEVEL 139 MG/DL (<200); CHOLESTEROL RISK RATIO 5.346 (<5); CREATININE FOR GFR 0.81 MG/DL (0.55-1.30); GLOMERULAR FILTRATION RATE > 60.0 (>60); GLUCOSE, FASTING 85 MG/DL (70-100); HDL CHOLESTEROL 26 MG/DL (>40); LDL CHOLESTEROL 82 MG/DL (<100); LITHIUM LEVEL 0.47 MEQ/L (0.60-1.20); NON-HDL-C 113 MG/DL; SODIUM LEVEL 140 MEQ/L (136-145); TOTAL PROTEIN 6.9 GM/DL (6.4-8.2); TRIGLYCERIDES LEVEL 153 MG/DL (<150)
== END ==
LOC: M WUC 10:56
PROVIDERS: ATTEND Nurse Practitioner Family
DX: E78.1 Pure hyperglyceridemia (principal); F31.9 Bipolar disorder, unspecified; Z68.33 Body mass index [BMI] 33.0-33.9, adult

== ENCOUNTER → 2018-08-29 | Outpatient (REF) | payer MEDICARE, OTHER, MEDICAID ==
[2018-08-29 20:53] LABS: CHLAMYDIA DNA AMPLIFICATION NEGATIVE (NEGATIVE); GC DNA AMPLIFICATION NEGATIVE (NEGATIVE)
== END ==
LOC: M LAB REF 17:49
PROVIDERS: ATTEND Advanced Practice Midwife
DX: Z11.3 Encounter for screening for infections with a predominantly sexual mode of transmission (principal)

== ENCOUNTER 2018-09-16 13:10 | Emergency (ER) | payer MEDICARE, MEDICAID ==
[~2018-09-16] VITALS: Ht 157.5 cm; Wt 38.4 kg
[2018-09-16] MEDS ORDERED: LITH600C (13:20)
[2018-09-16] MEDS: NS 1,000 ML IV ONE (14:00)
[2018-09-16] MEDS: GI COCKTAIL 50ML BTL(HYOSCYAMINE/MAALOX/LIDOCAINE VISCOUS)(1:3:1) PO ONE (15:46)
[2018-09-16 16:23] LABS: BASO # 0.1 10^3/uL (0.0-0.2); BASO % 0.5 % (0.0-1.0); EOS # 0.2 10^3/uL (0.0-0.50); EOS % 1.8 % (0.0-3.0); HEMATOCRIT 43.5 % (36.0-47.0); HEMOGLOBIN 14.8 g/dl (12.0-15.5); LYMPH # 2.6 10^3/uL (1.5-6.5); LYMPH % 26.2 % (24.0-44.0); MEAN CORPUSCULAR HEMOGLOBIN 28.1 pg (27.0-33.0); MEAN CORPUSCULAR VOLUME 82.7 fl (80.0-96.0); MONO # 0.6 10^3/uL (0.0-0.8); MONO % 5.7 % (0.0-5.0); NEUTROPHILS # 6.6 10^3/uL (1.8-7.7); NEUTROPHILS % 65.1 % (36.0-66.0); PLATELET COUNT, AUTOMATED 219 10^3/uL (150-450); RED BLOOD COUNT 5.26 10^6/uL (4.00-5.40); WHITE BLOOD COUNT 10.1 10^3/uL (4.0-10.0)
[2018-09-16 16:57] LABS: ALBUMIN 4.3 GM/DL (3.2-5.2); ALT/SGPT 24 U/L (12-78); AMYLASE 42 U/L (25-115); BILIRUBIN,DIRECT < 0.1 MG/DL (0.0-0.2); BILIRUBIN,TOTAL 0.4 MG/DL (0.2-1.0); BLOOD UREA NITROGEN 17 MG/DL (7-18); CALCIUM LEVEL 8.8 MG/DL (8.5-10.1); CARBON DIOXIDE LEVEL 23 MEQ/L (21-32); CHLORIDE LEVEL 110 MEQ/L (98-107); CREATININE FOR GFR 0.74 MG/DL (0.55-1.30); GLOMERULAR FILTRATION RATE > 60.0 (>60); GLUCOSE, FASTING 94 MG/DL (70-100); HCG, SERUM QUALITATIVE NEGATIVE (NEGATIVE); LIPASE 81 U/L (73-393); LITHIUM LEVEL < 0.20 MEQ/L (0.60-1.20); POTASSIUM SERUM 3.8 MEQ/L (3.5-5.1); SODIUM LEVEL 141 MEQ/L (136-145); TOTAL PROTEIN 7.4 GM/DL (6.4-8.2)
[2018-09-16] MEDS ORDERED: PRIL20TA2 PO (17:12)
[2018-09-16] MEDS ORDERED: CARA1TAB6 PO (17:12)
[2018-09-16 17:19] VITALS: BP 128/66
== END 2018-09-16 17:23 | disposition home or self-care (01) ==
LOC: M ED 13:10
DX: K21.9 Gastro-esophageal reflux disease without esophagitis (principal); F32.9 Major depressive disorder, single episode, unspecified

== ENCOUNTER → 2018-10-10 | Outpatient (CLI) | payer MEDICARE, MEDICAID ==
[~2018-10-10] MED LIST changes: +CARA1TAB6 PO; +LITH600C; +PRIL20TA2 PO; +TRAZ1TAB10 PO; -TRAZO50TA PO
--- NOTE | 2018-10-10 12:04 | REP ---
LEFT KNEE, FIVE VIEWS: HISTORY: Pain. There is no acute fracture or dislocation. The joint spaces are normal in appearance. IMPRESSION: There is no acute fracture or dislocation. Electronically Signed by Dean Kramer MD 10/10/2018 12:11 P
== END ==
LOC: M WUC 10:25
PROVIDERS: ATTEND Physician Assistant Medical
DX: M25.562 Pain in left knee (principal)

== ENCOUNTER → 2018-10-14 | Outpatient (REF) | payer MEDICARE, MEDICAID | LOC: M LAB REF 19:56 | PROVIDERS: ATTEND Advanced Practice Midwife | DX: Z12.4 Encounter for screening for malignant neoplasm of cervix (principal) ==

== ENCOUNTER → 2018-10-19 | Outpatient (CLI) | payer MEDICARE, MEDICAID ==
--- NOTE | 2018-10-20 07:12 | REP ---
MRI LEFT KNEE: TECHNIQUE: Axial proton density fat saturation, sagittal proton density T2 STIR, water excitation, coronal proton density, proton density fat saturation. I do not see evidence of a meniscal tear. The cruciate and collateral ligaments are intact. There is ill-defined edema on T2-weighted images surrounding the patellar tendon in the region of its insertion on to the lower pole of the patella. This appears to represent peritendinitis. There is no evidence of a tear of the patellar tendon or the distal quadriceps tendon. 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 No bone marrow signal abnormality is seen. There is no bone marrow edema or occult fracture. There is a relatively normal amount of joint fluid. No popliteal cyst is seen. The medial and lateral patellar retinacula are intact. IMPRESSION: No meniscal tear. Cruciate and collateral ligaments intact. Edema surrounding the patellar tendon in the region of the insertion onto the lower pole of patella appears to represent peritendinitis. No tendon tear is seen. There is chondromalacia of the medial patellar facet with fissuring and a 3-4 mm cartilaginous defect. Electronically Signed by Jeison Crews MD 10/20/2018 04:14 P
== END ==
LOC: M RAD 13:37
PROVIDERS: ATTEND Physician Assistant Medical
DX: M25.562 Pain in left knee (principal); M22.42 Chondromalacia patellae, left knee

== ENCOUNTER → 2018-10-29 | Outpatient (CLI) | payer MEDICARE, MEDICAID | LOC: M WUC 16:10 | PROVIDERS: ATTEND Advanced Practice Midwife | DX: N94.89 Other specified conditions associated with female genital organs and menstrual cycle (principal) ==

== ENCOUNTER → 2018-11-18 | Outpatient (CLI) | payer MEDICARE, MEDICAID ==
[~2018-11-18] MED LIST changes: -LORA0.5T11; +LORA0.5T5
== END ==
LOC: M WUC 14:38
PROVIDERS: ATTEND Nurse Practitioner Psychiatric/Mental Health
DX: Z51.81 Encounter for therapeutic drug level monitoring (principal); Z79.899 Other long term (current) drug therapy; Z13.9 Encounter for screening, unspecified

== ENCOUNTER → 2018-12-17 | Outpatient (CLI) | payer MEDICARE, MEDICAID ==
[~2018-12-17] MED LIST changes: +LORA0.5T11; -LORA0.5T5
== END ==
LOC: M WUC 16:14
PROVIDERS: ATTEND Nurse Practitioner Psychiatric/Mental Health
DX: F31.9 Bipolar disorder, unspecified (principal); Z51.81 Encounter for therapeutic drug level monitoring; Z13.9 Encounter for screening, unspecified; Z79.899 Other long term (current) drug therapy

== ENCOUNTER → 2019-01-17 | Outpatient (REF) | payer MEDICARE, OTHER, MEDICAID ==
[~2019-01-17] MED LIST changes: -LORA0.5T11; +LORA0.5T5
== END ==
LOC: M SFHCPLAZ 14:51
PROVIDERS: ATTEND Nurse Practitioner Family
DX: F31.9 Bipolar disorder, unspecified (principal); E78.1 Pure hyperglyceridemia; Z53.8 Procedure and treatment not carried out for other reasons

== ENCOUNTER → 2019-01-17 | Outpatient (CLI) | payer MEDICARE, BC, OTHER, MEDICAID ==
[2019-01-17 17:07] LABS: ALT/SGPT 24 U/L (12-78); BILIRUBIN,TOTAL 0.3 MG/DL (0.2-1.0); BLOOD UREA NITROGEN 18 MG/DL (7-18); CALCIUM LEVEL 9.4 MG/DL (8.5-10.1); CARBON DIOXIDE LEVEL 23 MEQ/L (21-32); CHLORIDE LEVEL 110 MEQ/L (98-107); CREATININE FOR GFR 0.75 MG/DL (0.55-1.30); FREE T4 1.05 NG/DL (0.76-1.46); GLOMERULAR FILTRATION RATE > 60.0 (>60); GLUCOSE, FASTING 86 MG/DL (70-100); POTASSIUM SERUM 3.8 MEQ/L (3.5-5.1); SODIUM LEVEL 143 MEQ/L (136-145)
== END ==
LOC: M WUC 15:22
PROVIDERS: ATTEND Nurse Practitioner Family
DX: F31.9 Bipolar disorder, unspecified (principal); E78.1 Pure hyperglyceridemia; Z68.33 Body mass index [BMI] 33.0-33.9, adult
CPT/HCPCS: 36415; 80053; 84439; 84443; G0402

== ENCOUNTER → 2019-05-14 | Outpatient (CLI) | payer MEDICARE, OTHER, MEDICAID ==
[~2019-05-14] MED LIST changes: +LORA0.5T11; -LORA0.5T5
== END ==
LOC: M WUC 16:38
PROVIDERS: ATTEND Nurse Practitioner Psychiatric/Mental Health
DX: Z13.9 Encounter for screening, unspecified (principal); F31.9 Bipolar disorder, unspecified; Z51.81 Encounter for therapeutic drug level monitoring

== ENCOUNTER 2019-07-11 21:59 | Emergency (ER) | payer MEDICARE, MEDICAID ==
[~2019-07-11] VITALS: Ht 157.5 cm; Wt 93.3 kg
[~2019-07-11 21:59] MED LIST changes: -LORA0.5T11; +LORA0.5T5
[2019-07-11] MEDS ORDERED: OXCA300T14 PO (22:05)
[2019-07-11 23:33] LABS: BASO # 0.1 10^3/uL (0.0-0.2); BASO % 0.5 % (0.0-1.0); EOS # 0.1 10^3/uL (0.0-0.5); EOS % 1.2 % (0.0-3.0); HEMOGLOBIN 14.7 g/dl (12.0-15.5); LYMPH % 28.8 % (24.0-44.0); MEAN CORPUSCULAR HEMOGLOBIN 27.4 pg (27.0-33.0); MEAN CORPUSCULAR HGB CONC 33.4 g/dl (32.0-36.5); MEAN CORPUSCULAR VOLUME 82.1 fl (80.0-96.0); MONO # 0.7 10^3/uL (0.0-0.8); NEUTROPHILS # 6.4 10^3/uL (1.5-8.5); NEUTROPHILS % 61.8 % (36.0-66.0); PLATELET COUNT, AUTOMATED 219 10^3/uL (150-450); RED BLOOD COUNT 5.36 10^6/uL (4.00-5.40); WHITE BLOOD COUNT 10.4 10^3/uL (4.0-10.0)
[2019-07-11 23:44] LABS: INR 1.01
[2019-07-11 23:45] LABS: PARTIAL THROMBOPLASTIN TIME 35.1 SECONDS (25.0-38.4)
[2019-07-11] MEDS ORDERED: IPRATROPIUM 0.5MG/ALBUTEROL 2.5MG INH SOL UD 3ML (DUONEB)(J7620) NEB ONE (23:45)
[2019-07-11] MEDS ORDERED: methylPREDNISolone INJ 125 MG/2 ML VIAL (J2930) IV ONE (23:45)
[2019-07-11 23:55] LABS: D-DIMER QUANT < 270 ng/ml (<500)
[2019-07-12 00:20] LABS: INFLUENZA A AMPLIFICATION NEGATIVE (NEGATIVE); INFLUENZA B AMPLIFICATION NEGATIVE (NEGATIVE)
[2019-07-12] MEDS ORDERED: PRED20TA PO (00:48)
[2019-07-12 00:56] VITALS: BP 140/67
--- NOTE | 2019-07-12 08:02 | REP ---
Chest x-ray: Two views. History: Chest pain . Comparison study: August 23, 2017 . Findings: The lungs are well inflated and free of infiltrate. The pleural angles are sharp. The heart size is normal. Pulmonary vasculature is not increased. No significant bony abnormality is seen. Impression: Negative chest x-ray. Electronically Signed by Doc John MD 07/12/2019 07:53 A
--- NOTE | 2019-07-12 18:44 | ECGEPIP ---
[facility] - ED Test Date: 2019-07-11 Pat Name: BETSY BRITTON Department: Room: - Gender: Female [employer]: joyce : 1995 Requested By: MAXIMUS Benedict Order Number: [id number] Reading MD: Rafaela Blanc Measurements Intervals [place] Rate: 89 P: 59 [place]: 156 QRS: 82 QRSD: 109 T: 59 QT: 340 QTc: 415 Interpretive Statements SINUS RHYTHM NONSPECIFIC T-WAVE ABNORMALITY SIMILAR 11/29/17 Electronically Signed on 07-12-2019 18:44:38 EST by Rafaela Blanc
== END 2019-07-12 01:06 | disposition home or self-care (01) ==
LOC: M ED 21:59
DX: J45.901 Unspecified asthma with (acute) exacerbation (principal); I10 Essential (primary) hypertension; E66.9 Obesity, unspecified; F41.1 Generalized anxiety disorder; F17.210 Nicotine dependence, cigarettes, uncomplicated; Z88.8 Allergy status to other drugs, medicaments and biological substances; Z91.030 Bee allergy status; Z91.040 Latex allergy status; Z79.899 Other long term (current) drug therapy
CPT/HCPCS: 36415; 71046; 80047; 84702; 85025; 85379; 85610; 85730; 87502; 93005; 94640; 99284; J2930

== ENCOUNTER → 2019-10-13 | Outpatient (CLI) | payer MEDICARE, MEDICAID ==
[~2019-10-13] MED LIST changes: +OXCA300T14 PO; +PRED20TA PO
[2019-10-13 17:17] LABS: BASO % 0.4 % (0.0-1.0); EOS # 0.2 10^3/uL (0.0-0.5); EOS % 2.5 % (0.0-3.0); HEMATOCRIT 42.2 % (36.0-47.0); HEMOGLOBIN 13.9 g/dl (12.0-15.5); LYMPH % 26.9 % (24.0-44.0); MEAN CORPUSCULAR HEMOGLOBIN 27.3 pg (27.0-33.0); MEAN CORPUSCULAR HGB CONC 32.9 g/dl (32.0-36.5); MEAN CORPUSCULAR VOLUME 82.7 fl (80.0-96.0); MONO # 0.6 10^3/uL (0.0-0.8); MONO % 7.7 % (0.0-5.0); NEUTROPHILS # 4.6 10^3/uL (1.5-8.5); NEUTROPHILS % 61.2 % (36.0-66.0); PLATELET COUNT, AUTOMATED 192 10^3/uL (150-450); WHITE BLOOD COUNT 7.6 10^3/uL (4.0-10.0)
[2019-10-13 17:45] LABS: ALBUMIN 4.1 GM/DL (3.2-5.2); ALT/SGPT 25 U/L (12-78); BILIRUBIN,DIRECT < 0.1 MG/DL (0.0-0.2); BILIRUBIN,TOTAL 0.3 MG/DL (0.2-1.0); BLOOD UREA NITROGEN 15 MG/DL (7-18); CALCIUM LEVEL 9.1 MG/DL (8.5-10.1); CARBON DIOXIDE LEVEL 25 MEQ/L (21-32); CHLORIDE LEVEL 109 MEQ/L (98-107); CHOLESTEROL LEVEL 174 MG/DL (<200); CHOLESTEROL RISK RATIO 6.214 (<5); CREATININE FOR GFR 0.93 MG/DL (0.55-1.30); FREE THYROXINE INDEX 2.8 % (1.3-4.8); GLOMERULAR FILTRATION RATE > 60.0 (>60); GLUCOSE, FASTING 105 MG/DL (70-100); HDL CHOLESTEROL 28 MG/DL (>40); LDL CHOLESTEROL 79 MG/DL (<100); LITHIUM LEVEL 0.34 MEQ/L (0.60-1.20); NON-HDL-C 146 MG/DL; POTASSIUM SERUM 3.6 MEQ/L (3.5-5.1); SODIUM LEVEL 142 MEQ/L (136-145); T UPTAKE 30 % (30-39); THYROXINE (T4) 9.2 UG/DL (4.5-12.0); TOTAL 25(OH) VITAMIN D 32.8 NG/ML (30.0-100.0); TOTAL PROTEIN 7.1 GM/DL (6.4-8.2); TRIGLYCERIDES LEVEL 335 MG/DL (<150); VITAMIN B12 LEVEL 326 PG/ML (247-911)
== END ==
LOC: M WUC 14:19
PROVIDERS: ATTEND Nurse Practitioner Psychiatric/Mental Health
DX: Z51.81 Encounter for therapeutic drug level monitoring (principal); Z79.899 Other long term (current) drug therapy; F31.9 Bipolar disorder, unspecified

== ENCOUNTER → 2019-11-21 | Outpatient (CLI) | payer MEDICARE, MEDICAID, OTHER ==
[2019-11-21 16:16] LABS: HCG, SERUM QUALITATIVE NEGATIVE (NEGATIVE)
[2019-11-21 16:30] LABS: BLOOD UREA NITROGEN 14 MG/DL (7-18); CARBON DIOXIDE LEVEL 24 MEQ/L (21-32); CHLORIDE LEVEL 107 MEQ/L (98-107); CREATININE FOR GFR 0.91 MG/DL (0.55-1.30); GLOMERULAR FILTRATION RATE > 60.0 (>60); GLUCOSE, FASTING 147 MG/DL (70-100); POTASSIUM SERUM 3.6 MEQ/L (3.5-5.1); SODIUM LEVEL 142 MEQ/L (136-145)
[2019-11-21 16:31] LABS: ALBUMIN 3.7 GM/DL (3.2-5.2); ALT/SGPT 26 U/L (12-78); BILIRUBIN,DIRECT < 0.1 MG/DL (0.0-0.2); BILIRUBIN,TOTAL 0.3 MG/DL (0.2-1.0); CALCIUM LEVEL 8.8 MG/DL (8.5-10.1); CHOLESTEROL LEVEL 153 MG/DL (<200); CHOLESTEROL RISK RATIO 5.884 (<5); HCG, SERUM QUANTITATIVE < 1.0 MIU/ML; HDL CHOLESTEROL 26 MG/DL (>40); LDL CHOLESTEROL 73 MG/DL (<100); NON-HDL-C 127 MG/DL; TOTAL PROTEIN 6.8 GM/DL (6.4-8.2); TRIGLYCERIDES LEVEL 272 MG/DL (<150)
[2019-11-21 16:36] LABS: BASO % 0.4 % (0.0-1.0); EOS # 0.2 10^3/uL (0.0-0.5); EOS % 3.3 % (0.0-3.0); HEMATOCRIT 40.8 % (36.0-47.0); HEMOGLOBIN 13.2 g/dl (12.0-15.5); LYMPH # 1.8 10^3/uL (1.5-5.0); LYMPH % 24.8 % (24.0-44.0); MEAN CORPUSCULAR HEMOGLOBIN 27.4 pg (27.0-33.0); MEAN CORPUSCULAR HGB CONC 32.4 g/dl (32.0-36.5); MEAN CORPUSCULAR VOLUME 84.6 fl (80.0-96.0); MONO # 0.4 10^3/uL (0.0-0.8); MONO % 5.5 % (0.0-5.0); NEUTROPHILS # 4.7 10^3/uL (1.5-8.5); PLATELET COUNT, AUTOMATED 173 10^3/uL (150-450); RED BLOOD COUNT 4.82 10^6/uL (4.00-5.40); WHITE BLOOD COUNT 7.3 10^3/uL (4.0-10.0)
[2019-11-21 16:52] LABS: TOTAL 25(OH) VITAMIN D 28.2 NG/ML (30.0-100.0)
[2019-11-21 16:53] LABS: VITAMIN B12 LEVEL 331 PG/ML (247-911)
[2019-11-21 16:57] LABS: HEMOGLOBIN A1c 5.3 %
== END ==
LOC: M WUC 13:47
PROVIDERS: ATTEND Nurse Practitioner Psychiatric/Mental Health
DX: F31.9 Bipolar disorder, unspecified (principal); Z51.81 Encounter for therapeutic drug level monitoring; Z13.9 Encounter for screening, unspecified; Z79.899 Other long term (current) drug therapy

== ENCOUNTER → 2020-01-13 | Outpatient (REF) | payer MEDICARE, MEDICAID, OTHER | LOC: M SFHCWAGY 12:30 | PROVIDERS: ATTEND Specialist | DX: Z12.4 Encounter for screening for malignant neoplasm of cervix (principal); R87.618 Other abnormal cytological findings on specimens from cervix uteri | CPT/HCPCS: G0101; G0123 ==

== ENCOUNTER → 2020-05-18 | Outpatient (REF) | payer MEDICARE, OTHER ==
[2020-05-18 18:04] LABS: HEMATOCRIT 43.6 % (36.0-47.0); HEMOGLOBIN 14.1 g/dl (12.0-15.5); MEAN CORPUSCULAR HEMOGLOBIN 27.1 pg (27.0-33.0); MEAN CORPUSCULAR HGB CONC 32.3 g/dl (32.0-36.5); MEAN CORPUSCULAR VOLUME 83.8 fl (80.0-96.0); PLATELET COUNT, AUTOMATED 209 10^3/uL (150-450); WHITE BLOOD COUNT 8.7 10^3/uL (4.0-10.0)
[2020-05-18 18:30] LABS: HCG, SERUM QUALITATIVE NEGATIVE (NEGATIVE)
[2020-05-18 18:37] LABS: ALBUMIN 4.1 GM/DL (3.2-5.2); ALT/SGPT 20 U/L (12-78); BILIRUBIN,TOTAL 0.4 MG/DL (0.2-1.0); BLOOD UREA NITROGEN 14 MG/DL (7-18); CALCIUM LEVEL 10.6 MG/DL (8.5-10.1); CARBON DIOXIDE LEVEL 27 MEQ/L (21-32); CHLORIDE LEVEL 104 MEQ/L (98-107); CHOLESTEROL LEVEL 231 MG/DL (<200); CHOLESTEROL RISK RATIO 4.529 (<5); CREATININE FOR GFR 0.76 MG/DL (0.55-1.30); FREE T4 0.98 NG/DL (0.76-1.46); GLOMERULAR FILTRATION RATE > 60.0 (>60); GLUCOSE, FASTING 85 MG/DL (70-100); HDL CHOLESTEROL 51 MG/DL (>40); LDL CHOLESTEROL 111 MG/DL (<100); LITHIUM LEVEL 0.33 MEQ/L (0.60-1.20); NON-HDL-C 180 MG/DL; POTASSIUM SERUM 3.7 MEQ/L (3.5-5.1); SODIUM LEVEL 139 MEQ/L (136-145); TOTAL PROTEIN 7.4 GM/DL (6.4-8.2); TRIGLYCERIDES LEVEL 345 MG/DL (<150)
== END ==
LOC: M SFHCPLAZ 15:45
PROVIDERS: ATTEND Physician Assistant
DX: R42 Dizziness and giddiness (principal); R03.0 Elevated blood-pressure reading, without diagnosis of hypertension; E78.1 Pure hyperglyceridemia; Z51.81 Encounter for therapeutic drug level monitoring
CPT/HCPCS: 36415; 80053; 80061; 80178; 81002; 84439; 84443; 84703; 85027; G0463

== ENCOUNTER → 2020-05-28 | Outpatient (REF) | payer MEDICARE, OTHER, MEDICAID | LOC: M LAB REF 16:37 | PROVIDERS: ATTEND Physician Assistant | DX: M79.7 Fibromyalgia (principal); R05 Cough; R50.9 Fever, unspecified ==

== ENCOUNTER → 2020-11-16 | Outpatient (CLI) | payer MEDICARE, OTHER, MEDICAID ==
[~2020-11-16] MED LIST changes: +DEBL1TAB; -LATU80TA PO; +LATU80TA2 PO; +LEVOTAB10; +LITH150C; +NAPR-885; +QUET50TA4
[2020-11-16 16:46] LABS: HCG, SERUM QUALITATIVE NEGATIVE (NEGATIVE); LITHIUM LEVEL 0.54 MEQ/L (0.60-1.20)
== END ==
LOC: M WUC 13:42
PROVIDERS: ATTEND Registered Nurse
DX: F31.9 Bipolar disorder, unspecified (principal)

== ENCOUNTER 2020-12-15 19:11 | Emergency (ER) | payer MEDICARE, OTHER, MEDICAID ==
[~2020-12-15] VITALS: Ht 157.5 cm; Wt 91.0 kg
[~2020-12-15 19:11] MED LIST changes: -DEBL1TAB; +LATU80TA PO; -LATU80TA2 PO; -LEVOTAB10; -LITH150C; -NAPR-885; -QUET50TA4
[2020-12-15] MEDS ORDERED: LEVOTAB10 (19:40)
[2020-12-15] MEDS ORDERED: DEBL1TAB (19:40)
[2020-12-15] MEDS ORDERED: QUET50TA4 (19:40)
[2020-12-15] MEDS ORDERED: LITH150C (19:40)
[2020-12-15] MEDS ORDERED: NAPR-885 (19:40)
[2020-12-15 21:20] LABS: BASO % 0.3 % (0.0-1.0); EOS # 0.1 10^3/uL (0.0-0.5); EOS % 0.8 % (0.0-3.0); HEMATOCRIT 42.6 % (36.0-47.0); HEMOGLOBIN 13.9 g/dl (12.0-15.5); LYMPH # 1.6 10^3/uL (1.5-5.0); LYMPH % 15.8 % (24.0-44.0); MEAN CORPUSCULAR HEMOGLOBIN 27.9 pg (27.0-33.0); MEAN CORPUSCULAR HGB CONC 32.6 g/dl (32.0-36.5); MEAN CORPUSCULAR VOLUME 85.5 fl (80.0-96.0); MONO # 0.7 10^3/uL (0.0-0.8); NEUTROPHILS # 7.8 10^3/uL (1.5-8.5); NEUTROPHILS % 75.5 % (36.0-66.0); PLATELET COUNT, AUTOMATED 233 10^3/uL (150-450); RED BLOOD COUNT 4.98 10^6/uL (4.00-5.40); WHITE BLOOD COUNT 10.4 10^3/uL (4.0-10.0)
[2020-12-15] MEDS ORDERED: KETOROLAC 30 MG/ML 1ML VIAL IV ONE (21:40)
[2020-12-15 21:50] LABS: BLOOD UREA NITROGEN 17 MG/DL (7-18); CALCIUM LEVEL 9.2 MG/DL (8.5-10.1); CARBON DIOXIDE LEVEL 26 MEQ/L (21-32); CHLORIDE LEVEL 112 MEQ/L (98-107); CK-MB VALUE MASS 1.5 NG/ML (<3.6); CPK CREATINE PHOSPHOKINASE 109 U/L (26-192); CREATININE FOR GFR 0.71 MG/DL (0.55-1.30); FREE T4 1.07 NG/DL (0.76-1.46); GLOMERULAR FILTRATION RATE > 60.0 (>60); GLUCOSE, FASTING 99 MG/DL (70-100); MAGNESIUM LEVEL 2.5 MG/DL (1.8-2.4); MB/CK RELATIVE INDEX 1.38 (< OR =4); POTASSIUM SERUM 3.8 MEQ/L (3.5-5.1); SODIUM LEVEL 144 MEQ/L (136-145); TROPONIN I < 0.02 NG/ML (< 0.10)
[2020-12-15 23:15] VITALS: BP 109/67
--- NOTE | 2020-12-16 06:47 | ECGEPIP ---
[facility] - ED Test Date: 2020-12-15 Pat Name: BETSY BRITTON Department: Room: - Gender: Female [employer]: [facility] : 1995 Requested By: TAWNY Guillermo Order Number: [id number] Reading MD: Josh Gonsales Measurements Intervals [place] Rate: 86 P: 11 UT: 158 QRS: 55 QRSD: 92 T: 18 QT: 370 QTc: 442 Interpretive Statements Normal sinus rhythm with sinus arrhythmia SIMILAR TO 07/11/19 Electronically Signed on 12-16-2020 6:47:03 EDT by Josh Gonsales
== END 2020-12-15 23:22 | disposition home or self-care (01) ==
LOC: M ED 19:11
DX: R07.89 Other chest pain (principal); F43.0 Acute stress reaction; I10 Essential (primary) hypertension; F32.9 Major depressive disorder, single episode, unspecified; F41.9 Anxiety disorder, unspecified; Z88.8 Allergy status to other drugs, medicaments and biological substances; Z91.040 Latex allergy status; Z91.030 Bee allergy status; F17.200 Nicotine dependence, unspecified, uncomplicated; Z79.899 Other long term (current) drug therapy
CPT/HCPCS: 80047; 80048; 82550; 82553; 83735; 84439; 84443; 84484; 84702; 85025; 93005; 93041; 94760; 96374; 99285; J1885

== ENCOUNTER → 2021-03-17 | Outpatient (CLI) | payer MEDICARE, BC, OTHER, MEDICAID ==
[~2021-03-17] MED LIST changes: +DEBL1TAB; +LEVOTAB10; +LITH150C; +NAPR-885; +QUET50TA4
--- NOTE | 2021-03-21 17:32 | SLEEPCENT ---
DATE: 03/17/2021 ORDERED BY: Dina Cortes RN, ANP Nocturnal polysomnography was performed for evaluation of sleep physiology in this patient with a history of morning headaches and non-restorative sleep. Eight hours and 13 minutes of data were reviewed. There were 444.5 minutes of sleep identified. Sleep latency was mildly delayed at 21 minutes. REM latency was normal at 72 minutes. Sleep architecture was good with 4 REM cycles. Overall sleep efficiency was 91.9%. The electrocardiogram showed a sinus rhythm with an average heart rate of 80 beats per minute. Some respiratory variability was appreciated. Heart rate ranged 60 to 105. EEG showed normal waveforms for wake and sleep. There were 189 respiratory events identified of 10 seconds in duration or greater for an apnea hypopnea index of 25.5. The events were obstructive, not exclusive to sleep stage nor position. Arousals from respiratory events occurred 5.7 times per hour and oxygen desaturations were seen into the 80s. IMPRESSIONS: Obstructive sleep apnea syndrome (G47.33). Apnea hypopnea index 25.5. RECOMMENDATION: The patient should be encouraged to return to the sleep disorders center for pressure therapy. In the interim, alcohol and sedative avoidance should be practiced and caution exercised during the operation of motor vehicles. cc: CALVIN BECERRA PA-C
== END ==
LOC: M SLEEP 20:00
PROVIDERS: ATTEND Nurse Practitioner Adult Health
DX: G47.33 Obstructive sleep apnea (adult) (pediatric) (principal)

== ENCOUNTER → 2021-04-25 | Outpatient (CLI) | payer MEDICARE, BC, OTHER, MEDICAID ==
--- NOTE | 2021-04-27 15:26 | SLEEPCENT ---
DATE: 04/25/2021 ORDERED BY: Dina Cortes NP Nocturnal polysomnography was performed for the titration of pressure therapy in this patient with obstructive sleep apnea syndrome, apnea-hypopnea index of 25.5. For testing a ResMed AirFit nasal mask of medium size with a chin strap was used, 4 cm of water pressure were applied to the circuit, and the lights were extinguished. Seven hours and 50 minutes of data were reviewed. There were 431.5 minutes of sleep identified. Sleep latency was mildly prolonged at 31.5 minutes. REM latency was normal at 83.5 minutes. Sleep architecture was good with four REM cycles. Overall sleep efficiency was 92.9%. The electrocardiogram showed a sinus rhythm with an average heart rate of 80 beats per minute. EEG showed normal waveforms for wake and sleep. Respiratory events were fully palliated with CPAP at a pressure of 7 and remaining measures of sleep physiology were normal. IMPRESSION: Obstructive sleep apnea syndrome (G47.33). RECOMMENDATION: Nightly use of pressure therapy 7 cm of water. cc: CALVIN BECERRA PA-C
== END ==
LOC: M SLEEP 20:00
PROVIDERS: ATTEND Nurse Practitioner Adult Health
DX: G47.33 Obstructive sleep apnea (adult) (pediatric) (principal)

== ENCOUNTER → 2021-05-03 | Outpatient (CLI) | payer MEDICARE, BC, OTHER, MEDICAID ==
[~2021-05-03] MED LIST changes: -LATU80TA PO; +LATU80TA2 PO
[2021-05-03 16:03] LABS: BASO # 0.1 10^3/uL (0.0-0.2); BASO % 0.6 % (0.0-1.0); EOS # 0.2 10^3/uL (0.0-0.5); EOS % 2.3 % (0.0-3.0); HEMATOCRIT 41.7 % (36.0-47.0); LYMPH # 2.1 10^3/uL (1.5-5.0); LYMPH % 24.2 % (24.0-44.0); MEAN CORPUSCULAR HEMOGLOBIN 28.6 pg (27.0-33.0); MEAN CORPUSCULAR HGB CONC 33.6 g/dl (32.0-36.5); MEAN CORPUSCULAR VOLUME 85.1 fl (80.0-96.0); MONO # 0.6 10^3/uL (0.0-0.8); MONO % 7.1 % (2.0-8.0); NEUTROPHILS # 5.7 10^3/uL (1.5-8.5); PLATELET COUNT, AUTOMATED 187 10^3/uL (150-450); WHITE BLOOD COUNT 8.8 10^3/uL (4.0-10.0)
[2021-05-03 16:35] LABS: ALBUMIN 4.1 GM/DL (3.2-5.2); ALT/SGPT 38 U/L (12-78); BILIRUBIN,DIRECT 0.1 MG/DL (0.0-0.2); BILIRUBIN,TOTAL 0.4 MG/DL (0.2-1.0); BLOOD UREA NITROGEN 14 MG/DL (7-18); CALCIUM LEVEL 8.9 MG/DL (8.5-10.1); CARBON DIOXIDE LEVEL 27 MEQ/L (21-32); CHLORIDE LEVEL 108 MEQ/L (98-107); CHOLESTEROL LEVEL 172 MG/DL (<200); CHOLESTEROL RISK RATIO 5.548 (<5); CREATININE FOR GFR 0.82 MG/DL (0.55-1.30); FREE T3 3.2 PG/ML (2.2-4.0); FREE T4 1.01 NG/DL (0.76-1.46); GLOMERULAR FILTRATION RATE > 60.0 (>60); GLUCOSE, FASTING 100 MG/DL (70-100); GLUCOSE,RANDOM 100 MG/DL (LESS THAN 200); HDL CHOLESTEROL 31 MG/DL (>40); LDL CHOLESTEROL 76 MG/DL (<100); LITHIUM LEVEL 0.42 MEQ/L (0.60-1.20); NON-HDL-C 141 MG/DL; PHOSPHORUS LEVEL 3.5 MG/DL (2.5-4.9); POTASSIUM SERUM 3.9 MEQ/L (3.5-5.1); SODIUM LEVEL 141 MEQ/L (136-145); TOTAL 25(OH) VITAMIN D 16.5 NG/ML (30.0-100.0); TOTAL PROTEIN 7.1 GM/DL (6.4-8.2); TRIGLYCERIDES LEVEL 325 MG/DL (<150)
== END ==
LOC: M WUC 13:32
PROVIDERS: ATTEND Registered Nurse
DX: F31.9 Bipolar disorder, unspecified (principal); Z79.899 Other long term (current) drug therapy

== ENCOUNTER → 2021-05-25 | Outpatient (REF) | payer MEDICARE, BC, OTHER, MEDICAID ==
[~2021-05-25] MED LIST changes: +LATU80TA PO; -LATU80TA2 PO
== END ==
LOC: M LAB REF 12:43
PROVIDERS: ATTEND Physician Assistant
DX: R05.9 Cough, unspecified (principal)

== ENCOUNTER → 2021-06-24 | Outpatient (REF) | payer MEDICARE, BC, OTHER, MEDICAID ==
[~2021-06-24] MED LIST changes: -LATU80TA PO; +LATU80TA2 PO
== END ==
LOC: M WUC 15:37
PROVIDERS: ATTEND Nurse Practitioner Psychiatric/Mental Health
DX: F31.9 Bipolar disorder, unspecified (principal); Z51.81 Encounter for therapeutic drug level monitoring; Z13.9 Encounter for screening, unspecified

== ENCOUNTER → 2021-07-12 | Outpatient (REF) | payer MEDICARE, OTHER, MEDICAID | LOC: M SFHCWAGY 18:02 | PROVIDERS: ATTEND Specialist | DX: Z01.419 Encounter for gynecological examination (general) (routine) without abnormal findings (principal) | CPT/HCPCS: 87624; G0101; G0123 ==

== ENCOUNTER → 2021-09-27 | Outpatient (CLI) | payer MEDICARE, OTHER, MEDICAID ==
[2021-09-27 16:30] LABS: BASO # 0.1 10^3/uL (0.0-0.2); BASO % 0.5 % (0.0-1.0); EOS # 0.2 10^3/uL (0.0-0.5); EOS % 2.5 % (0.0-3.0); HEMOGLOBIN 14.6 g/dl (12.0-15.5); MEAN CORPUSCULAR HEMOGLOBIN 28.5 pg (27.0-33.0); MEAN CORPUSCULAR HGB CONC 33.2 g/dl (32.0-36.5); MEAN CORPUSCULAR VOLUME 85.9 fl (80.0-96.0); MONO # 0.7 10^3/uL (0.0-0.8); MONO % 7.5 % (2.0-8.0); NEUTROPHILS # 6.1 10^3/uL (1.5-8.5); NEUTROPHILS % 66.6 % (36.0-66.0); PLATELET COUNT, AUTOMATED 207 10^3/uL (150-450); RED BLOOD COUNT 5.12 10^6/uL (4.00-5.40); WHITE BLOOD COUNT 9.2 10^3/uL (4.0-10.0)
[2021-09-27 17:15] LABS: ALT/SGPT 31 U/L (12-78); AMYLASE 35 U/L (25-115); BILIRUBIN,TOTAL 0.5 MG/DL (0.2-1.0); BLOOD UREA NITROGEN 13 MG/DL (7-18); CALCIUM LEVEL 9.2 MG/DL (8.5-10.1); CARBON DIOXIDE LEVEL 27 MEQ/L (21-32); CHLORIDE LEVEL 112 MEQ/L (98-107); CHOLESTEROL LEVEL 141 MG/DL (<200); CHOLESTEROL RISK RATIO 4.406 (<5); CREATININE FOR GFR 0.91 MG/DL (0.55-1.30); FREE T4 1.02 NG/DL (0.76-1.46); GLOMERULAR FILTRATION RATE > 60.0 (>60); GLUCOSE, FASTING 97 MG/DL (70-100); HDL CHOLESTEROL 32 MG/DL (>40); LDL CHOLESTEROL 74 MG/DL (<100); LIPASE 55 U/L (73-393); NON-HDL-C 109 MG/DL; POTASSIUM SERUM 3.8 MEQ/L (3.5-5.1); SODIUM LEVEL 142 MEQ/L (136-145); TRIGLYCERIDES LEVEL 173 MG/DL (<150)
== END ==
LOC: M WUC 11:50
PROVIDERS: ATTEND Physician Assistant
DX: E55.9 Vitamin D deficiency, unspecified (principal); E78.1 Pure hyperglyceridemia; F31.9 Bipolar disorder, unspecified; E05.90 Thyrotoxicosis, unspecified without thyrotoxic crisis or storm; Z79.899 Other long term (current) drug therapy

== ENCOUNTER → 2021-09-29 | Outpatient (CLI) | payer MEDICARE, OTHER, MEDICAID ==
[2021-09-29 13:10] LABS: HCG, SERUM QUANTITATIVE < 1.0 MIU/ML; LITHIUM LEVEL 0.48 MEQ/L (0.60-1.20)
== END ==
LOC: M WUC 09:18
PROVIDERS: ATTEND Registered Nurse
DX: F31.9 Bipolar disorder, unspecified (principal)

== ENCOUNTER → 2022-02-07 | Outpatient (CLI) | payer MEDICARE, OTHER, MEDICAID, BC | LOC: M WUC 11:07 | PROVIDERS: ATTEND Registered Nurse | DX: Z51.81 Encounter for therapeutic drug level monitoring (principal); F31.9 Bipolar disorder, unspecified; Z79.899 Other long term (current) drug therapy; Z13.9 Encounter for screening, unspecified ==

== ENCOUNTER → 2022-06-22 | Outpatient (CLI) | payer MEDICARE, MEDICAID | LOC: M PLARAD 13:36 | PROVIDERS: ATTEND Orthopaedic Surgery | DX: M50.222 Other cervical disc displacement at C5-C6 level (principal); M47.812 Spondylosis without myelopathy or radiculopathy, cervical region; M50.223 Other cervical disc displacement at C6-C7 level ==

== ENCOUNTER 2022-09-26 22:58 | Observation (INO) | payer MEDICARE, MEDICAID ==
[~2022-09-26] VITALS: Ht 157.5 cm; Wt 93.6 kg
[2022-09-27 00:16] LABS: BASO % 0.3 % (0.0-1.0); EOS # 0.2 10^3/uL (0.0-0.5); EOS % 1.7 % (0.0-3.0); HEMATOCRIT 39.5 % (36.0-47.0); HEMOGLOBIN 13.6 g/dl (12.0-15.5); LYMPH # 2.4 10^3/uL (1.5-5.0); LYMPH % 24.9 % (24.0-44.0); MEAN CORPUSCULAR HEMOGLOBIN 28.6 pg (27.0-33.0); MEAN CORPUSCULAR HGB CONC 34.4 g/dl (32.0-36.5); MONO # 0.7 10^3/uL (0.0-0.8); MONO % 7.8 % (2.0-8.0); NEUTROPHILS # 6.1 10^3/uL (1.5-8.5); PLATELET COUNT, AUTOMATED 185 10^3/uL (150-450); RED BLOOD COUNT 4.76 10^6/uL (4.00-5.40); WHITE BLOOD COUNT 9.5 10^3/uL (4.0-10.0)
[2022-09-27 00:50] LABS: ALBUMIN 3.6 G/DL (3.2-5.2); ALKALINE PHOSPHATASE 102 U/L (46-116); ALT/SGPT 25 U/L (7.0-40); AST/SGOT 16 U/L (<34); BILIRUBIN,DIRECT 0.1 MG/DL (<0.4); BILIRUBIN,TOTAL 0.4 MG/DL (0.3-1.2); BLOOD UREA NITROGEN 16 MG/DL (9-23); CALCIUM LEVEL 9.1 MG/DL (8.5-10.1); CARBON DIOXIDE LEVEL 25 MMOL/L (20-31); CHLORIDE LEVEL 108 MMOL/L (98-107); CREATININE FOR GFR 0.75 MG/DL (0.55-1.30); GLOMERULAR FILTRATION RATE > 60.0 (>60); GLUCOSE, FASTING 105 MG/DL (60-100); POTASSIUM SERUM 3.6 MMOL/L (3.5-5.1); SODIUM LEVEL 141 MMOL/L (136-145); TOTAL PROTEIN 6.3 G/DL (5.7-8.2)
[2022-09-27 01:07] LABS: HCG, SERUM QUANTITATIVE 2733.4 MIU/ML (<4.2)
[2022-09-27 02:19] LABS: GC DNA AMPLIFICATION NEGATIVE (NEGATIVE)
[2022-09-27] MEDS ORDERED: GENTAMICIN 140 MG in D5W 50 ML IV SCH (03:25)
[2022-09-27] MEDS ORDERED: ONDANSETRON 4MG 2ML VIAL IV PRN (03:40)
[2022-09-27] MEDS ORDERED: MULTTAB20 PO (03:43)
[2022-09-27] MEDS ORDERED: HOME MED LIST COMPLETE! XX SCH (03:45)
[2022-09-27 04:14] LABS: RSV AMPLIFICATION NEGATIVE (NEGATIVE)
[2022-09-27] MEDS ORDERED: HYDROMORPHONE HCL 0.5 MG/ 0.5 ML SYRINGE IV ONE (04:50)
[2022-09-27] MEDS ORDERED: CLINDAMYCIN 900 MG in IV 1 EA IV SCH (05:00)
[2022-09-27 05:10] VITALS: BP 117/56
[2022-09-27] MEDS: LR 1,000 ML IV SCH ×3 (05:20→17:52)
[2022-09-27] MEDS ORDERED: GENTAMICIN IV ONE (06:00)
[2022-09-27] MEDS ORDERED: D5W IV ONE (06:00)
[2022-09-27 07:27] LABS: ALBUMIN 3.4 G/DL (3.2-5.2); ALKALINE PHOSPHATASE 96 U/L (46-116); ALT/SGPT 24 U/L (7.0-40); AST/SGOT 18 U/L (<34); BILIRUBIN,TOTAL 0.4 MG/DL (0.3-1.2); BLOOD UREA NITROGEN 15 MG/DL (9-23); CALCIUM LEVEL 8.4 MG/DL (8.5-10.1); CARBON DIOXIDE LEVEL 19 MMOL/L (20-31); CHLORIDE LEVEL 107 MMOL/L (98-107); CREATININE FOR GFR 0.67 MG/DL (0.55-1.30); GLOMERULAR FILTRATION RATE > 60.0 (>60); GLUCOSE, FASTING 101 MG/DL (60-100); POTASSIUM SERUM 3.8 MMOL/L (3.5-5.1); SODIUM LEVEL 138 MMOL/L (136-145); TOTAL PROTEIN 6.1 G/DL (5.7-8.2)
[2022-09-27 10:00] VITALS: BP 129/76
[2022-09-27] MEDS: metroNIDAZOLE (FLAGYL) 500MG TABLET PO SCH ×2 (10:53→21:30)
[2022-09-27] MEDS: cefTRIAXone SOD 1 GM in D5W MINI-BAG PLUS 50 ML IV SCH (10:53)
[2022-09-27] MEDS ORDERED: AZITHROMYCIN 250MG TABLET PO ONE (12:00)
[2022-09-27] MEDS ORDERED: GENTAMICIN 100 MG in IV 1 EA IV SCH (14:00)
[2022-09-27 14:30] VITALS: BP 161/84
[2022-09-27 14:50] VITALS: BP 130/73
[2022-09-27 15:43] LABS: HEMOGLOBIN 12.5 g/dl (12.0-15.5); MEAN CORPUSCULAR HEMOGLOBIN 28.6 pg (27.0-33.0); MEAN CORPUSCULAR HGB CONC 34.7 g/dl (32.0-36.5); MEAN CORPUSCULAR VOLUME 82.4 fl (80.0-96.0); PLATELET COUNT, AUTOMATED 175 10^3/uL (150-450); RED BLOOD COUNT 4.37 10^6/uL (4.00-5.40); WHITE BLOOD COUNT 8.3 10^3/uL (4.0-10.0)
[2022-09-27 18:00] VITALS: BP 134/60
[2022-09-27 22:00] VITALS: BP 132/70
[2022-09-28 02:00] VITALS: BP 109/59
[2022-09-28] MEDS: LR 1,000 ML IV SCH (02:42)
[2022-09-28 06:00] VITALS: BP 114/62
[2022-09-28] MEDS: metroNIDAZOLE (FLAGYL) 500MG TABLET PO SCH (08:37)
[2022-09-28 10:00] VITALS: BP 108/60
[2022-09-28] MEDS: cefTRIAXone SOD 1 GM in D5W MINI-BAG PLUS 50 ML IV SCH (11:23)
[2022-09-28 13:55] LABS: HEMATOCRIT 38.8 % (36.0-47.0); HEMOGLOBIN 13.3 g/dl (12.0-15.5); MEAN CORPUSCULAR HEMOGLOBIN 28.3 pg (27.0-33.0); MEAN CORPUSCULAR HGB CONC 34.3 g/dl (32.0-36.5); MEAN CORPUSCULAR VOLUME 82.6 fl (80.0-96.0); PLATELET COUNT, AUTOMATED 179 10^3/uL (150-450); WHITE BLOOD COUNT 9.4 10^3/uL (4.0-10.0)
[2022-09-28 14:00] VITALS: BP 133/83
[2022-09-28 14:40] LABS: ALBUMIN 3.6 G/DL (3.2-5.2); ALKALINE PHOSPHATASE 93 U/L (46-116); ALT/SGPT 23 U/L (7.0-40); AST/SGOT 12 U/L (<34); BILIRUBIN,TOTAL 0.4 MG/DL (0.3-1.2); BLOOD UREA NITROGEN 7 MG/DL (9-23); CALCIUM LEVEL 8.8 MG/DL (8.5-10.1); CARBON DIOXIDE LEVEL 24 MMOL/L (20-31); CHLORIDE LEVEL 107 MMOL/L (98-107); CREATININE FOR GFR 0.66 MG/DL (0.55-1.30); GLOMERULAR FILTRATION RATE > 60.0 (>60); GLUCOSE, FASTING 89 MG/DL (60-100); HCG, SERUM QUANTITATIVE 4789.8 MIU/ML (<4.2); POTASSIUM SERUM 3.9 MMOL/L (3.5-5.1); SODIUM LEVEL 139 MMOL/L (136-145)
[2022-09-28] MEDS ORDERED: METR-265 PO (17:28)
[2022-09-28] MEDS ORDERED: AZIT-12 PO (17:28)
== END 2022-09-28 17:45 | disposition home or self-care (01) ==
LOC: M ED 22:58 → M ED INP 09-27 03:22 → M OBS 09-27 05:10
PROVIDERS: ADMIT Obstetrics & Gynecology; ATTEND Obstetrics & Gynecology
DX: O98.319 Other infections with a predominantly sexual mode of transmission complicating pregnancy, unspecified trimester (principal); A74.9 Chlamydial infection, unspecified; Z91.040 Latex allergy status; Z91.030 Bee allergy status; Z88.8 Allergy status to other drugs, medicaments and biological substances; Z3A.01 Less than 8 weeks gestation of pregnancy
CPT/HCPCS: 36415; 76801; 76817; 80048; 80053; 80076; 81001; 84702; 85025; 85027; 86850; 86900; 86901; 87631; 87661; 87810; 87850; 93976; 96361; 96365; 96366; 96367; 96375; 99284; G0378; J0696; J1580; J2405

== ENCOUNTER → 2022-10-03 | Outpatient (CLI) | payer MEDICARE, MEDICAID ==
[~2022-10-03] MED LIST changes: +AZIT-12 PO; +METR-265 PO; +MULTTAB20 PO
== END ==
LOC: M WHC 09:40
PROVIDERS: ATTEND Advanced Practice Midwife
DX: R10.31 Right lower quadrant pain (principal); Z3A.01 Less than 8 weeks gestation of pregnancy

== ENCOUNTER → 2022-10-26 | Outpatient (CLI) | payer MEDICARE, MEDICAID, OTHER ==
[2022-10-26 15:10] LABS: HEMATOCRIT 38.8 % (36.0-47.0); HEMOGLOBIN 13.1 g/dl (12.0-15.5); MEAN CORPUSCULAR HEMOGLOBIN 28.2 pg (27.0-33.0); MEAN CORPUSCULAR HGB CONC 33.8 g/dl (32.0-36.5); MEAN CORPUSCULAR VOLUME 83.4 fl (80.0-96.0); PLATELET COUNT, AUTOMATED 171 10^3/uL (150-450); RED BLOOD COUNT 4.65 10^6/uL (4.00-5.40); WHITE BLOOD COUNT 8.6 10^3/uL (4.0-10.0)
[2022-10-26 15:35] LABS: HIV 1&2 SCREEN NEGATIVE (NEGATIVE)
[2022-10-26 15:43] LABS: HEPATITIS C VIRUS ABY INDEX 0.09 INDEX (<0.8)
[2022-10-26 15:52] LABS: GC DNA AMPLIFICATION NEGATIVE (NEGATIVE)
== END ==
LOC: M PLALAB 11:25
PROVIDERS: ATTEND Specialist
DX: Z34.81 Encounter for supervision of other normal pregnancy, first trimester (principal); Z79.899 Other long term (current) drug therapy

== ENCOUNTER → 2022-11-08 | Outpatient (CLI) | payer MEDICARE, MEDICAID, BC, OTHER | LOC: M PLALAB 12:14 | PROVIDERS: ATTEND Specialist | DX: Z34.81 Encounter for supervision of other normal pregnancy, first trimester (principal); Z53.9 Procedure and treatment not carried out, unspecified reason ==

== ENCOUNTER → 2022-11-09 | Outpatient (REF) | payer MEDICARE, MEDICAID, BC, OTHER | LOC: M SFHCWAGY 15:13 | PROVIDERS: ATTEND Specialist | DX: Z34.81 Encounter for supervision of other normal pregnancy, first trimester (principal) ==

== ENCOUNTER 2022-12-15 22:00 | Emergency (ER) | payer MEDICARE, MEDICAID, BC, OTHER | END 2022-12-15 22:21 | disposition left against medical advice (07) | LOC: M ED 22:00 → EDBD 22:00 → M ED 22:21 | DX: Z53.21 Procedure and treatment not carried out due to patient leaving prior to being seen by health care provider (principal) ==

== ENCOUNTER 2022-12-15 22:10 | Emergency (ER) | payer MEDICARE, MEDICAID, BC, OTHER ==
[~2022-12-15] VITALS: Ht 157.5 cm; Wt 95.4 kg
[2022-12-15 22:11] VITALS: BP 161/83; TEMP 98.6; O2SAT 98
[2022-12-15 23:13] LABS: BASO % 0.2 % (0.0-1.0); EOS % 0.7 % (0.0-3.0); HEMATOCRIT 32.2 % (36.0-47.0); HEMOGLOBIN 11.1 g/dl (12.0-15.5); MEAN CORPUSCULAR HEMOGLOBIN 29.2 pg (27.0-33.0); MEAN CORPUSCULAR HGB CONC 34.5 g/dl (32.0-36.5); MEAN CORPUSCULAR VOLUME 84.7 fl (80.0-96.0); MONO # 0.6 10^3/uL (0.0-0.8); MONO % 9.4 % (2.0-8.0); NEUTROPHILS # 4.2 10^3/uL (1.5-8.5); NEUTROPHILS % 71.2 % (36.0-66.0); PLATELET COUNT, AUTOMATED 140 10^3/uL (150-450); WHITE BLOOD COUNT 5.9 10^3/uL (4.0-10.0)
[2022-12-16 00:03] LABS: ALBUMIN 3.2 G/DL (3.2-5.2); ALKALINE PHOSPHATASE 81 U/L (46-116); ALT/SGPT 18 U/L (7.0-40); AST/SGOT 12 U/L (<34); BILIRUBIN,TOTAL 0.4 MG/DL (0.3-1.2); BLOOD UREA NITROGEN 8 MG/DL (9-23); CALCIUM LEVEL 8.4 MG/DL (8.5-10.1); CARBON DIOXIDE LEVEL 22 MMOL/L (20-31); CHLORIDE LEVEL 107 MMOL/L (98-107); CREATININE FOR GFR 0.48 MG/DL (0.55-1.30); GLOMERULAR FILTRATION RATE > 60.0 (>60); GLUCOSE, FASTING 115 MG/DL (60-100); POTASSIUM SERUM 3.5 MMOL/L (3.5-5.1); SODIUM LEVEL 140 MMOL/L (136-145)
== END 2022-12-16 01:00 | disposition left against medical advice (07) ==
LOC: M ED 22:10
DX: Z53.21 Procedure and treatment not carried out due to patient leaving prior to being seen by health care provider (principal)

== ENCOUNTER 2022-12-26 20:39 | Emergency (ER) | payer MEDICARE, MEDICAID, BC, OTHER ==
[~2022-12-26] VITALS: Ht 157.5 cm; Wt 95.5 kg
[2022-12-26 20:40] VITALS: BP 145/84; TEMP 98.2; O2SAT 96
[2022-12-26] MEDS ORDERED: FAMO20TA5 (20:50)
== END 2022-12-26 23:08 | disposition left against medical advice (07) ==
LOC: M ED 20:39
DX: Z53.21 Procedure and treatment not carried out due to patient leaving prior to being seen by health care provider (principal)

== ENCOUNTER → 2022-12-27 | Outpatient (REF) | payer MEDICARE, OTHER, MEDICAID ==
[~2022-12-27] MED LIST changes: +FAMO20TA5
[2022-12-27 18:18] LABS: TOTAL PROTEIN,RANDOM URINE 9.2 MG/DL (0.0-14.0)
[2022-12-27 18:22] LABS: CREATININE,RANDOM URINE 134.3 MG/DL
== END ==
LOC: M PLALAB 15:32
PROVIDERS: ATTEND Obstetrics & Gynecology
DX: O09.299 Supervision of pregnancy with other poor reproductive or obstetric history, unspecified trimester (principal); Z3A.00 Weeks of gestation of pregnancy not specified

== ENCOUNTER → 2023-01-02 | Outpatient (CLI) | payer MEDICARE, MEDICAID, BC, OTHER | LOC: M WHC 13:53 | PROVIDERS: ATTEND Specialist | DX: Z34.82 Encounter for supervision of other normal pregnancy, second trimester (principal); Z3A.18 18 weeks gestation of pregnancy ==

== ENCOUNTER → 2023-02-09 | Outpatient (CLI) | payer MEDICARE, BC, OTHER, MEDICAID | LOC: M RAD 11:30 | PROVIDERS: ATTEND Advanced Practice Midwife | DX: O34.211 Maternal care for low transverse scar from previous cesarean delivery (principal); O32.1XX0 Maternal care for breech presentation, not applicable or unspecified; Z3A.24 24 weeks gestation of pregnancy ==

== ENCOUNTER 2023-03-04 09:19 | Outpatient (CLI) | payer MEDICARE, BC, OTHER, MEDICAID ==
[~2023-03-04] VITALS: Ht 157.5 cm; Wt 94.8 kg
[2023-03-04] MEDS ORDERED: ECOT81TA5 PO (09:37)
[2023-03-04] MEDS ORDERED: TUMS500C PO (09:37)
[2023-03-04] MEDS ORDERED: HOME MED LIST COMPLETE! XX SCH (09:40)
[2023-03-04 09:41] VITALS: BP 133/79
== END 2023-03-04 10:18 | disposition home or self-care (01) ==
LOC: M LDO 09:19
PROVIDERS: ATTEND Specialist
DX: O36.8220 Fetal anemia and thrombocytopenia, second trimester, not applicable or unspecified (principal); O34.218 Maternal care for other type scar from previous cesarean delivery; O32.1XX9 Maternal care for breech presentation, other fetus; Z3A.27 27 weeks gestation of pregnancy
CPT/HCPCS: 59025; 76815; G0463

== ENCOUNTER 2023-03-07 18:03 | Emergency (ER) | payer BC, OTHER, MEDICAID ==
[~2023-03-07] VITALS: Ht 157.5 cm; Wt 97.9 kg
[2023-03-07 18:14] VITALS: TEMP 97.6
[2023-03-07 19:06] VITALS: BP 144/87; O2SAT 97
== END 2023-03-07 20:58 | disposition home or self-care (01) ==
LOC: M ED 18:03
DX: F41.0 Panic disorder [episodic paroxysmal anxiety] (principal); J45.909 Unspecified asthma, uncomplicated; Z88.8 Allergy status to other drugs, medicaments and biological substances; Z91.030 Bee allergy status; Z91.040 Latex allergy status; Z79.82 Long term (current) use of aspirin; Z79.810 Long term (current) use of selective estrogen receptor modulators (SERMs); Z79.899 Other long term (current) drug therapy

== ENCOUNTER → 2023-03-07 | Outpatient (CLI) | payer MEDICARE, BC, OTHER, MEDICAID ==
[~2023-03-07] MED LIST changes: +ECOT81TA5 PO
[2023-03-07 18:30] LABS: HEMATOCRIT 32.3 % (36.0-47.0); HEMOGLOBIN 10.8 g/dl (12.0-15.5); MEAN CORPUSCULAR HEMOGLOBIN 29.1 pg (27.0-33.0); MEAN CORPUSCULAR HGB CONC 33.4 g/dl (32.0-36.5); MEAN CORPUSCULAR VOLUME 87.1 fl (80.0-96.0); PLATELET COUNT, AUTOMATED 145 10^3/uL (150-450); RED BLOOD COUNT 3.71 10^6/uL (4.00-5.40); WHITE BLOOD COUNT 7.2 10^3/uL (4.0-10.0)
== END ==
LOC: M PLALAB 13:59
PROVIDERS: ATTEND Advanced Practice Midwife
DX: O34.211 Maternal care for low transverse scar from previous cesarean delivery (principal); Z3A.00 Weeks of gestation of pregnancy not specified

== ENCOUNTER 2023-03-20 18:10 | Outpatient (CLI) | payer MEDICARE, BC, OTHER, MEDICAID ==
[~2023-03-20] VITALS: Ht 157.5 cm; Wt 96.9 kg
[2023-03-20] MEDS ORDERED: FERR325T3 PO (18:23)
[2023-03-20] MEDS ORDERED: HOME MED LIST COMPLETE! XX SCH (18:25)
[2023-03-20 18:30] VITALS: BP 131/79
[2023-03-20 20:38] LABS: CHLAMYDIA DNA AMPLIFICATION NEGATIVE (NEGATIVE); GC DNA AMPLIFICATION NEGATIVE (NEGATIVE)
== END 2023-03-20 19:28 | disposition home or self-care (01) ==
LOC: M LDO 18:10
PROVIDERS: ATTEND Obstetrics & Gynecology
DX: O26.893 Other specified pregnancy related conditions, third trimester (principal); R10.30 Lower abdominal pain, unspecified; Z3A.30 30 weeks gestation of pregnancy; O34.218 Maternal care for other type scar from previous cesarean delivery
CPT/HCPCS: 59025; 81001; 87810; 87850; G0463

== ENCOUNTER 2023-04-30 19:56 | Outpatient (CLI) | payer MEDICARE, BC, OTHER ==
[~2023-04-30] VITALS: Ht 157.5 cm; Wt 97.4 kg
[2023-04-30 20:18] VITALS: BP 139/85
[2023-04-30 20:24] VITALS: BP 138/68
[2023-04-30] MEDS ORDERED: NITROFURANTOIN (MACROBID) 100 MG CAP PO ONE (20:55)
[2023-04-30] MEDS ORDERED: MACR100C43 PO (20:57)
== END 2023-04-30 21:10 | disposition home or self-care (01) ==
LOC: M LDO 19:56
PROVIDERS: ATTEND Obstetrics & Gynecology
DX: O26.893 Other specified pregnancy related conditions, third trimester (principal); R10.30 Lower abdominal pain, unspecified; O34.219 Maternal care for unspecified type scar from previous cesarean delivery; Z3A.35 35 weeks gestation of pregnancy; Z91.030 Bee allergy status; Z91.040 Latex allergy status; Z88.8 Allergy status to other drugs, medicaments and biological substances
CPT/HCPCS: 59025; 81000; 81015; 87086; G0463

== ENCOUNTER → 2023-05-04 | Outpatient (REF) | payer MEDICARE, BC, OTHER, MEDICAID ==
[~2023-05-04] MED LIST changes: +MACR100C43 PO
== END ==
LOC: M SFHCWAGY 13:05
PROVIDERS: ATTEND Advanced Practice Midwife
DX: Z34.93 Encounter for supervision of normal pregnancy, unspecified, third trimester (principal)

== ENCOUNTER 2023-05-18 21:28 | Outpatient (CLI) | payer MEDICARE, MEDICAID ==
[~2023-05-18] VITALS: Ht 157.5 cm; Wt 100.4 kg
[2023-05-18 21:51] VITALS: BP 133/83
[2023-05-18] MEDS ORDERED: HOME MED LIST COMPLETE! XX SCH (22:00)
[2023-05-18] MEDS: FLUCONAZOLE 50MG TABLET PO ONE (22:48)
== END 2023-05-18 23:00 | disposition home or self-care (01) ==
LOC: M LDO 21:28
PROVIDERS: ATTEND Advanced Practice Midwife
DX: O23.593 Infection of other part of genital tract in pregnancy, third trimester (principal); O34.219 Maternal care for unspecified type scar from previous cesarean delivery; B37.9 Candidiasis, unspecified; Z3A.38 38 weeks gestation of pregnancy
CPT/HCPCS: 59025; 81001; G0463

== ENCOUNTER 2023-05-26 09:40 | Inpatient (IN) | payer MEDICARE, BC, OTHER, MEDICAID ==
[2023-05-26] VITALS (17 sets, daily range): BP systolic 100–140; BP diastolic 55–85
[~2023-05-26] VITALS: Ht 157.5 cm; Wt 100.7 kg
[2023-05-26] MEDS ORDERED: TUMS500C PO (10:12)
[2023-05-26] MEDS ORDERED: FERR240T PO (10:12)
[2023-05-26 11:17] LABS: HEMATOCRIT 32.9 % (36.0-47.0); HEMOGLOBIN 11.4 g/dl (12.0-15.5); MEAN CORPUSCULAR HEMOGLOBIN 29.7 pg (27.0-33.0); MEAN CORPUSCULAR HGB CONC 34.7 g/dl (32.0-36.5); MEAN CORPUSCULAR VOLUME 85.7 fl (80.0-96.0); PLATELET COUNT, AUTOMATED 159 10^3/uL (150-450); RED BLOOD COUNT 3.84 10^6/uL (4.00-5.40)
[2023-05-26] MEDS ORDERED: LACTATED RINGER'S 1000 ML IV STA (11:48)
[2023-05-26] MEDS ORDERED: OXYTOCIN DRIP 30 UNITS in IV 1 EA IV SCH (11:50)
[2023-05-26] MEDS ORDERED: TRANEXAMIC ACID INJection 1,000 MG in NS 100 ML IV PRN (11:50)
[2023-05-26] MEDS ORDERED: OXYTOCIN DRIP 30 UNITS in IV 1 EA IV PRN ×4 (11:50)
[2023-05-26] MEDS ORDERED: LR 1,000 ML IV SCH (11:50)
[2023-05-26] MEDS ORDERED: CARBOPROST TROMETHAMINE 250 MCG/ML AMP IM PRN (11:50)
[2023-05-26] MEDS ORDERED: METHYLERGONOVINE MALEATE 0.2MG/ML 1ML VIAL IM PRN (11:50)
[2023-05-26] MEDS: LR 1,000 ML IV SCH ×2 (12:15→19:50)
[2023-05-26] MEDS: CALCIUM CARBONATE 500 MG CHEW U/D PO PRN ×2 (12:40→22:22)
[2023-05-27] VITALS (13 sets, daily range): BP systolic 92–136; BP diastolic 50–87; TEMP 98.5; O2SAT 97–99
[2023-05-27] MEDS ORDERED: LR 1,000 ML IV SCH ×2 (07:35→11:45)
[2023-05-27 07:43] LABS: HEMATOCRIT 30.3 % (36.0-47.0); HEMOGLOBIN 10.5 g/dl (12.0-15.5); MEAN CORPUSCULAR HGB CONC 34.7 g/dl (32.0-36.5); MEAN CORPUSCULAR VOLUME 86.6 fl (80.0-96.0); PLATELET COUNT, AUTOMATED 135 10^3/uL (150-450); WHITE BLOOD COUNT 6.8 10^3/uL (4.0-10.0)
[2023-05-27] MEDS ORDERED: BICITRA 30ML SOLN UDC PO ONE (07:45)
[2023-05-27] MEDS ORDERED: ceFAZolin SOD 2 GM in IV 1 EA IV ONE (07:45)
[2023-05-27] MEDS: LR 1,000 ML IV SCH (07:47)
[2023-05-27] MEDS ORDERED: OXYTOCIN 30UNITS IN 0.9% NaCl 500ML IV BAG As Ordered ONE ×2 (07:49→11:20)
[2023-05-27] MEDS ORDERED: ACETAMINOPHEN 1000MG 100ML IV BAG As Ordered ONE (07:49)
[2023-05-27] MEDS ORDERED: MORPHINE PRES-FREE INJ 10 MG/10 ML VIAL As Ordered ONE (07:49)
[2023-05-27] MEDS ORDERED: KETOROLAC 60MG 2ML VIAL As Ordered ONE (07:53)
[2023-05-27] MEDS ORDERED: ONDANSETRON 4MG 2ML VIAL As Ordered ONE (07:53)
[2023-05-27] MEDS: PRENATAL VITAMINS CHEWABLE TABLET PO SCH (09:00)
[2023-05-27] MEDS ORDERED: PHENYLephrine 500MCG 5ML (100MCG/ML) SYRINGE As Ordered ONE ×2 (10:02→10:12)
[2023-05-27] MEDS ORDERED: oxyCODONE 5MG TAB PO PRN ×3 (11:10→11:45)
[2023-05-27] MEDS ORDERED: SIMETHICONE 80MG CHEW TAB PO PRN (11:10)
[2023-05-27] MEDS ORDERED: OXYTOCIN DRIP 30 UNITS in IV 1 EA IV SCH (11:10)
[2023-05-27] MEDS ORDERED: DOCUSATE SODIUM 100MG CAPSULE PO PRN (11:10)
[2023-05-27] MEDS ORDERED: RHOGAM 300MCG (1500IU) INJ IM SCH (11:10)
[2023-05-27] MEDS ORDERED: MYCOLOG CREAM 15GM (NYSTATIN/TRIAMCINOLONE) TOP PRN ×2 (11:20→11:40)
[2023-05-27] MEDS ORDERED: PROMETHAZINE 25MG/ML 1ML VIAL IV PRN (11:45)
[2023-05-27] MEDS ORDERED: NALOXONE INJ 0.4MG/1ML VIAL IV PRN ×2 (11:45)
[2023-05-27] MEDS ORDERED: **NOTE PATIENT COMMENT** MISC XX SCH (11:45)
[2023-05-27] MEDS ORDERED: NALBUPHINE HCL 1MG/0.1ML (100MG/10ML) MDV IV PRN ×2 (11:45)
[2023-05-27] MEDS ORDERED: ONDANSETRON 4MG 2ML VIAL IV PRN ×2 (11:45)
[2023-05-27] MEDS ORDERED: METOCLOPRAMIDE INJ 10MG/2ML VIAL IV PRN (11:45)
[2023-05-27] MEDS: SLF 3 ML SYR IV SCH ×2 (11:45→19:09)
[2023-05-27] MEDS ORDERED: fentaNYL 100 MCG/2 ML INJECTION As Ordered ONE (12:28)
[2023-05-27] MEDS: fentaNYL 100 MCG/2 ML INJECTION IV PRN ×2 (12:31→12:45)
[2023-05-27] MEDS ORDERED: diphenhydrAMINE 50MG/ML VIAL As Ordered ONE (12:53)
[2023-05-27] MEDS: diphenhydrAMINE 50MG/ML VIAL IV PRN ×2 (12:55→21:52)
[2023-05-27] MEDS ORDERED: NYSTATIN CREAM 15GM TOP PRN (13:40)
[2023-05-27] MEDS: ACETAMINOPHEN 500 MG TAB PO SCH ×2 (16:12→22:02)
[2023-05-27] MEDS: KETOROLAC 30 MG/ML 1ML VIAL IV SCH ×2 (16:43→22:02)
[2023-05-28] MEDS: diphenhydrAMINE 50MG/ML VIAL IV PRN ×2 (02:25→08:08)
[2023-05-28 02:26] VITALS: BP 119/73; O2SAT 98
[2023-05-28] MEDS: SLF 3 ML SYR IV SCH (03:42)
[2023-05-28] MEDS: KETOROLAC 30 MG/ML 1ML VIAL IV SCH (04:31)
[2023-05-28] MEDS: ACETAMINOPHEN 500 MG TAB PO SCH ×4 (04:31→22:22)
[2023-05-28 06:17] VITALS: BP 100/57; O2SAT 98
[2023-05-28] MEDS: PRENATAL VITAMINS CHEWABLE TABLET PO SCH (08:09)
[2023-05-28 08:59] LABS: HEMATOCRIT 27.2 % (36.0-47.0); HEMOGLOBIN 9.3 g/dl (12.0-15.5); MEAN CORPUSCULAR HEMOGLOBIN 30.1 pg (27.0-33.0); MEAN CORPUSCULAR HGB CONC 34.2 g/dl (32.0-36.5); PLATELET COUNT, AUTOMATED 101 10^3/uL (150-450); RED BLOOD COUNT 3.09 10^6/uL (4.00-5.40); WHITE BLOOD COUNT 7.2 10^3/uL (4.0-10.0)
[2023-05-28 10:25] VITALS: BP 142/80; O2SAT 99
[2023-05-28] MEDS: IBUPROFEN 600MG TAB PO SCH ×3 (10:26→22:22)
[2023-05-28 18:00] VITALS: BP 121/70; O2SAT 99
[2023-05-28 22:00] VITALS: BP 117/74; O2SAT 98
[2023-05-29 02:00] VITALS: BP 108/55
[2023-05-29] MEDS: ACETAMINOPHEN 500 MG TAB PO SCH ×2 (04:44→11:20)
[2023-05-29] MEDS: IBUPROFEN 600MG TAB PO SCH ×2 (04:44→11:21)
[2023-05-29 06:00] VITALS: BP 110/64
[2023-05-29] MEDS: PRENATAL VITAMINS CHEWABLE TABLET PO SCH (08:33)
[2023-05-29] MEDS ORDERED: MEASLES,MUMPS,RUBELLA VACCINE INJ (MMR-II) SC.IMMUN ONE (09:00)
[2023-05-29] MEDS ORDERED: COLA100C5 PO (09:49)
[2023-05-29] MEDS ORDERED: IBUP-1022 PO (09:49)
[2023-05-29] MEDS ORDERED: OXYC-517 PO (09:49)
[2023-05-29] MEDS ORDERED: ACET-683 PO (09:49)
[2023-05-29 10:00] VITALS: BP 128/63; O2SAT 96
== END 2023-05-29 12:45 | disposition home or self-care (01) | DRG 788 ==
LOC: M LDI 09:40 → M OBS 05-27 13:15
PROVIDERS: ADMIT Obstetrics & Gynecology; ATTEND Obstetrics & Gynecology
PROC: 3E033VJ Introduction of Other Hormone into Peripheral Vein, Percutaneous Approach (ICD-10-PCS; 2023-05-26)
PROC: 10D00Z1 Extraction of Products of Conception, Low, Open Approach (ICD-10-PCS; principal; 2023-05-27 08:30)
DX: O34.211 Maternal care for low transverse scar from previous cesarean delivery (principal); Z37.0 Single live birth; Z3A.39 39 weeks gestation of pregnancy; Z91.030 Bee allergy status; Z91.040 Latex allergy status; Z87.891 Personal history of nicotine dependence; Z88.0 Allergy status to penicillin

== ENCOUNTER 2023-06-01 11:06 | Emergency (ER) | payer MEDICARE, MEDICAID ==
[~2023-06-01] VITALS: Ht 157.5 cm; Wt 95.5 kg
[~2023-06-01 11:06] MED LIST changes: +ACET-683 PO; +COLA100C5 PO; +FERR240T PO; +IBUP-1022 PO
[2023-06-01] MEDS ORDERED: NS 1,000 ML IV SCH (11:35)
[2023-06-01] MEDS ORDERED: KETOROLAC 30 MG/ML 1ML VIAL IV ONE (11:35)
[2023-06-01 12:05] LABS: BASO % 0.2 % (0.0-1.0); EOS # 0.1 10^3/uL (0.0-0.5); HEMOGLOBIN 10.1 g/dl (12.0-15.5); LYMPH # 1.1 10^3/uL (1.5-5.0); LYMPH % 18.9 % (24.0-44.0); MEAN CORPUSCULAR HEMOGLOBIN 29.5 pg (27.0-33.0); MEAN CORPUSCULAR HGB CONC 33.7 g/dl (32.0-36.5); MEAN CORPUSCULAR VOLUME 87.7 fl (80.0-96.0); MONO # 0.5 10^3/uL (0.0-0.8); MONO % 9.3 % (2.0-8.0); NEUTROPHILS # 3.9 10^3/uL (1.5-8.5); NEUTROPHILS % 68.9 % (36.0-66.0); PLATELET COUNT, AUTOMATED 136 10^3/uL (150-450); RED BLOOD COUNT 3.42 10^6/uL (4.00-5.40); WHITE BLOOD COUNT 5.6 10^3/uL (4.0-10.0)
[2023-06-01 12:30] LABS: LIPASE 22 U/L (12-53)
[2023-06-01 12:32] LABS: ALBUMIN 2.4 G/DL (3.2-5.2); ALKALINE PHOSPHATASE 90 U/L (46-116); ALT/SGPT 17 U/L (7.0-40); AST/SGOT 12 U/L (<34); BILIRUBIN,DIRECT 0.1 MG/DL (<0.4); BILIRUBIN,TOTAL 0.4 MG/DL (0.3-1.2); BLOOD UREA NITROGEN 15 MG/DL (9-23); CARBON DIOXIDE LEVEL 26 MMOL/L (20-31); CHLORIDE LEVEL 110 MMOL/L (98-107); CREATININE FOR GFR 0.74 MG/DL (0.55-1.30); GLOMERULAR FILTRATION RATE > 60.0 (>60); GLUCOSE, FASTING 95 MG/DL (60-100); POTASSIUM SERUM 3.8 MMOL/L (3.5-5.1); SODIUM LEVEL 142 MMOL/L (136-145); TOTAL PROTEIN 5.4 G/DL (5.7-8.2)
[2023-06-01 12:35] LABS: RSV AMPLIFICATION NEGATIVE (NEGATIVE)
[2023-06-01] MEDS ORDERED: ISOVUE-370 76% 100ML VIAL As Ordered ONE (12:58)
[2023-06-01 16:46] VITALS: BP 137/74; O2SAT 100
[2023-06-01 17:07] VITALS: TEMP 97.4
== END 2023-06-01 17:49 | disposition home or self-care (01) ==
LOC: M ED 11:06
DX: G89.18 Other acute postprocedural pain (principal); R10.9 Unspecified abdominal pain; G43.909 Migraine, unspecified, not intractable, without status migrainosus; E78.5 Hyperlipidemia, unspecified; F31.9 Bipolar disorder, unspecified; Z79.52 Long term (current) use of systemic steroids; Z79.810 Long term (current) use of selective estrogen receptor modulators (SERMs); Z79.899 Other long term (current) drug therapy
CPT/HCPCS: 36415; 74177; 76856; 80048; 80076; 83605; 83690; 85025; 87040; 87077; 87186; 87631; 93976; 96361; 96374; 99284; J1885; Q9967

== ENCOUNTER → 2023-07-26 | Outpatient (REF) | payer MEDICARE, OTHER ==
[2023-07-26 14:30] LABS: APPEARANCE, URINE CLOUDY (CLEAR); BACTERIA, URINE AUTO 1+ (NEGATIVE); BILIRUBIN, URINE AUTO NEGATIVE (NEGATIVE); BLOOD, URINE BLOOD NEGATIVE (NEGATIVE); COLOR, URINE YELLOW (YELLOW); GLUCOSE, URINE (UA) AUTO NEGATIVE (NEGATIVE); KETONE, URINE AUTO NEGATIVE (NEGATIVE); LEUKOCYTE ESTERASE, URINE AUTO 3+ (NEGATIVE); MUCUS, URINE SMALL (NEGATIVE); NITRITE, URINE AUTO NEGATIVE (NEGATIVE); PROTEIN, URINE AUTO 2+ mg/dL (NEGATIVE); RBC, URINE AUTO 6 /HPF (0-3); SPECIFIC GRAVITY URINE AUTO 1.019 (1.002-1.035); SQUAMOUS EPITHELIAL CELL UR AU 8 /HPF (0-6); UROBILINOGEN, URINE AUTO 0.2 mg/dL (0.0-2.0); WBC, URINE AUTO TNTC /HPF (0-3)
== END ==
LOC: M SFHCWAGY 13:11
PROVIDERS: ATTEND Obstetrics & Gynecology
DX: R30.0 Dysuria (principal)

== ENCOUNTER → 2023-10-31 | Outpatient (CLI) | payer MEDICARE, MEDICAID | LOC: M RAD 12:53 | PROVIDERS: ATTEND Physician Assistant | DX: M25.562 Pain in left knee (principal) ==

== ENCOUNTER 2024-04-08 23:27 | Emergency (ER) | payer MEDICARE, MEDICAID ==
[~2024-04-08] VITALS: Ht 157.5 cm; Wt 89.3 kg
[2024-04-09] MEDS: ONDANSETRON 4MG 2ML VIAL IV ONE (00:14)
[2024-04-09] MEDS: ACETAMINOPHEN 325 MG TAB PO ONE (00:15)
[2024-04-09] MEDS: NS 1,000 ML IV ONE (00:18)
[2024-04-09 00:37] LABS: LIPASE 23 U/L (12-53)
[2024-04-09 00:39] LABS: ALBUMIN 3.6 G/DL (3.2-5.2); ALKALINE PHOSPHATASE 98 U/L (35-104); ALT/SGPT 32 U/L (7.0-40); AST/SGOT 29 U/L (<34); BILIRUBIN,DIRECT 0.4 MG/DL (<0.4); BILIRUBIN,TOTAL 1.1 MG/DL (0.3-1.2); BLOOD UREA NITROGEN 10 MG/DL (9-23); CARBON DIOXIDE LEVEL 24 MMOL/L (20-31); CHLORIDE LEVEL 106 MMOL/L (98-107); GLOMERULAR FILTRATION RATE > 60.0 (>60); GLUCOSE, FASTING 99 MG/DL (60-100); POTASSIUM SERUM 3.4 MMOL/L (3.5-5.1); SODIUM LEVEL 141 MMOL/L (136-145); TOTAL PROTEIN 6.6 G/DL (5.7-8.2)
[2024-04-09 00:40] LABS: BASO % 0.2 % (0.0-1.0); EOS % 0.4 % (0.0-3.0); HEMOGLOBIN 12.1 g/dl (12.0-15.5); LYMPH % 12.1 % (24.0-44.0); MEAN CORPUSCULAR HGB CONC 33.6 g/dl (32.0-36.5); MEAN CORPUSCULAR VOLUME 83.3 fl (80.0-96.0); MONO # 0.8 10^3/uL (0.0-0.8); MONO % 9.7 % (2.0-8.0); NEUTROPHILS # 6.2 10^3/uL (1.5-8.5); NEUTROPHILS % 77.1 % (36.0-66.0); PLATELET COUNT, AUTOMATED 147 10^3/uL (150-450); RED BLOOD COUNT 4.32 10^6/uL (4.00-5.40)
[2024-04-09 00:48] LABS: HCG, SERUM QUALITATIVE NEGATIVE (NEGATIVE)
[2024-04-09] MEDS ORDERED: AZIT-10 PO (01:54)
[2024-04-09] MEDS ORDERED: BENZ200C70 PO (01:54)
[2024-04-09] MEDS: AZITHROMYCIN 250MG TABLET PO ONE (02:10)
[2024-04-09 02:20] VITALS: BP 115/61; TEMP 98.5; O2SAT 95
== END 2024-04-09 02:10 | disposition home or self-care (01) ==
LOC: EDBD 23:27 → M ED 23:27
DX: R50.9 Fever, unspecified (principal); R05.9 Cough, unspecified; R00.0 Tachycardia, unspecified; F17.200 Nicotine dependence, unspecified, uncomplicated; Z88.0 Allergy status to penicillin; Z88.1 Allergy status to other antibiotic agents; Z88.8 Allergy status to other drugs, medicaments and biological substances; Z91.030 Bee allergy status; Z91.040 Latex allergy status; Z79.2 Long term (current) use of antibiotics; Z79.1 Long term (current) use of non-steroidal anti-inflammatories (NSAID); Z79.899 Other long term (current) drug therapy
CPT/HCPCS: 71045; 76705; 80048; 80076; 81001; 83690; 84703; 85025; 87486; 87581; 87633; 87798; 93005; 96361; 96374; 99284; J2405

== ENCOUNTER → 2024-04-13 | Outpatient (CLI) | payer MEDICARE, MEDICAID ==
[~2024-04-13] MED LIST changes: +AZIT-10 PO; +BENZ200C70 PO
[2024-04-13 12:48] LABS: BASO % 0.6 % (0.0-1.0); EOS # 0.2 10^3/uL (0.0-0.5); EOS % 2.6 % (0.0-3.0); HEMATOCRIT 38.7 % (36.0-47.0); HEMOGLOBIN 12.9 g/dl (12.0-15.5); LYMPH # 2.1 10^3/uL (1.5-5.0); LYMPH % 33.7 % (24.0-44.0); MEAN CORPUSCULAR HEMOGLOBIN 27.2 pg (27.0-33.0); MEAN CORPUSCULAR HGB CONC 33.3 g/dl (32.0-36.5); MEAN CORPUSCULAR VOLUME 81.5 fl (80.0-96.0); MONO # 0.5 10^3/uL (0.0-0.8); MONO % 8.3 % (2.0-8.0); NEUTROPHILS # 3.3 10^3/uL (1.5-8.5); NEUTROPHILS % 52.7 % (36.0-66.0); PLATELET COUNT, AUTOMATED 240 10^3/uL (150-450); RED BLOOD COUNT 4.75 10^6/uL (4.00-5.40); WHITE BLOOD COUNT 6.3 10^3/uL (4.0-10.0)
[2024-04-13 13:19] LABS: ALBUMIN 3.9 G/DL (3.2-5.2); ALKALINE PHOSPHATASE 111 U/L (35-104); ALT/SGPT 40 U/L (7.0-40); AST/SGOT 13 U/L (<34); BILIRUBIN,TOTAL 0.7 MG/DL (0.3-1.2); BLOOD UREA NITROGEN 14 MG/DL (9-23); CALCIUM LEVEL 9.6 MG/DL (8.5-10.1); CARBON DIOXIDE LEVEL 25 MMOL/L (20-31); CHLORIDE LEVEL 107 MMOL/L (98-107); CREATININE FOR GFR 0.85 MG/DL (0.55-1.30); GLOMERULAR FILTRATION RATE > 60.0 (>60); GLUCOSE, FASTING 96 MG/DL (60-100); POTASSIUM SERUM 4.1 MMOL/L (3.5-5.1); SODIUM LEVEL 140 MMOL/L (136-145); TOTAL PROTEIN 7.3 G/DL (5.7-8.2)
== END ==
LOC: M LAB 11:54
PROVIDERS: ATTEND Surgery
DX: Z01.818 Encounter for other preprocedural examination (principal)

== ENCOUNTER → 2024-05-01 | Outpatient (REF) | payer MEDICARE, BC | LOC: M LAB REF 20:11 | PROVIDERS: ATTEND Physician Assistant | DX: R19.7 Diarrhea, unspecified (principal) ==

== ENCOUNTER → 2024-10-28 | Outpatient (CLI) | payer MEDICARE, MEDICAID ==
[2024-10-28 13:52] LABS: HEMATOCRIT 36.5 % (36.0-47.0); HEMOGLOBIN 12.4 g/dl (12.0-15.5); MEAN CORPUSCULAR HEMOGLOBIN 28.2 pg (27.0-33.0); MEAN CORPUSCULAR VOLUME 83.1 fl (80.0-96.0); PLATELET COUNT, AUTOMATED 124 10^3/uL (150-450); RED BLOOD COUNT 4.39 10^6/uL (4.00-5.40); WHITE BLOOD COUNT 6.4 10^3/uL (4.0-10.0)
[2024-10-28 14:51] LABS: HIV 1&2 SCREEN NEGATIVE (NEGATIVE)
[2024-10-28 15:00] LABS: HEPATITIS C VIRUS ABY INDEX 0.05 INDEX (<0.8)
[2024-10-28 15:01] LABS: Trichomonas vaginalis (AMP) NOT DETECTED (NEGATIVE)
[2024-10-28 15:25] LABS: GC DNA AMPLIFICATION NEGATIVE (NEGATIVE)
== END ==
LOC: M PLALAB 10:47
PROVIDERS: ATTEND Advanced Practice Midwife
DX: Z34.81 Encounter for supervision of other normal pregnancy, first trimester (principal); Z11.3 Encounter for screening for infections with a predominantly sexual mode of transmission; Z72.89 Other problems related to lifestyle; Z11.59 Encounter for screening for other viral diseases; Z79.899 Other long term (current) drug therapy

== ENCOUNTER → 2024-11-10 | Outpatient (CLI) | payer MEDICARE, MEDICAID | LOC: M PLALAB 12:39 | PROVIDERS: ATTEND Advanced Practice Midwife | DX: Z34.80 Encounter for supervision of other normal pregnancy, unspecified trimester (principal); Z3A.00 Weeks of gestation of pregnancy not specified ==

== ENCOUNTER → 2024-11-13 | Outpatient (REF) | payer MEDICARE, MEDICAID ==
[2024-11-13 18:39] LABS: APPEARANCE, URINE HAZY (CLEAR); BACTERIA, URINE AUTO 1+ (NEGATIVE); BILIRUBIN, URINE AUTO NEGATIVE (NEGATIVE); BLOOD, URINE BLOOD NEGATIVE (NEGATIVE); GLUCOSE, URINE (UA) AUTO NEGATIVE (NEGATIVE); KETONE, URINE AUTO NEGATIVE (NEGATIVE); LEUKOCYTE ESTERASE, URINE AUTO 1+ (NEGATIVE); MUCUS, URINE SMALL (NEGATIVE); NITRITE, URINE AUTO NEGATIVE (NEGATIVE); PROTEIN, URINE AUTO NEGATIVE (NEGATIVE); RBC, URINE AUTO 1 /HPF (0-3); SPECIFIC GRAVITY URINE AUTO 1.017 (1.002-1.035); SQUAMOUS EPITHELIAL CELL UR AU 19 /HPF (0-6); UROBILINOGEN, URINE AUTO 0.2 mg/dL (0.0-2.0); WBC, URINE AUTO 2 /HPF (0-3)
== END ==
LOC: M LAB REF 17:02
PROVIDERS: ATTEND Physician Assistant
DX: N39.0 Urinary tract infection, site not specified (principal)

== ENCOUNTER → 2024-12-23 | Outpatient (CLI) | payer MEDICARE, MEDICAID | LOC: M WHC 08:53 | PROVIDERS: ATTEND Obstetrics & Gynecology | DX: Z34.92 Encounter for supervision of normal pregnancy, unspecified, second trimester (principal); Z3A.20 20 weeks gestation of pregnancy ==

== ENCOUNTER → 2024-12-29 | Outpatient (REF) | payer MEDICARE, MEDICAID ==
[~2024-12-29] MED LIST changes: -IBUP-1022 PO; +IBUP600T42 PO
== END ==
LOC: M SFHCWAGY 12:44
PROVIDERS: ATTEND Obstetrics & Gynecology
DX: Z34.80 Encounter for supervision of other normal pregnancy, unspecified trimester (principal); Z79.899 Other long term (current) drug therapy

== ENCOUNTER → 2025-01-08 | Outpatient (CLI) | payer MEDICARE, MEDICAID | LOC: M RAD 11:00 | PROVIDERS: ATTEND Obstetrics & Gynecology | DX: Z34.80 Encounter for supervision of other normal pregnancy, unspecified trimester (principal) ==

== ENCOUNTER → 2025-01-29 | Outpatient (CLI) | payer MEDICARE, MEDICAID ==
[2025-01-29 14:50] LABS: PLATELET COUNT, AUTOMATED 121 10^3/uL (150-450)
[2025-01-29 15:21] LABS: GLUCOSE CHALLENGE TEST 1 HOUR 141 MG/DL (LESS THAN 140)
[2025-01-29 15:55] LABS: Trichomonas vaginalis (AMP) NOT DETECTED (NEGATIVE)
[2025-01-29 15:56] LABS: HIV 1&2 SCREEN NEGATIVE (NEGATIVE)
[2025-01-29 16:04] LABS: HEPATITIS C VIRUS ABY INDEX < 0.02 INDEX (<0.8)
[2025-01-29 16:19] LABS: GC DNA AMPLIFICATION NEGATIVE (NEGATIVE)
== END ==
LOC: M PLALAB 09:25
PROVIDERS: ATTEND Obstetrics & Gynecology
DX: Z34.92 Encounter for supervision of normal pregnancy, unspecified, second trimester (principal); Z11.3 Encounter for screening for infections with a predominantly sexual mode of transmission

== ENCOUNTER → 2025-02-03 | Outpatient (REF) | payer MEDICARE, MEDICAID | LOC: M PLALAB 07:48 | PROVIDERS: ATTEND Obstetrics & Gynecology | DX: Z53.9 Procedure and treatment not carried out, unspecified reason (principal) ==

== ENCOUNTER → 2025-02-11 | Outpatient (REF) | payer MEDICARE, MEDICAID ==
[~2025-02-11] MED LIST changes: +CLOT1CRE56 TOP
== END ==
LOC: M SFHCWAGY 15:03
PROVIDERS: ATTEND Obstetrics & Gynecology
DX: L29.2 Pruritus vulvae (principal)

== ENCOUNTER 2025-02-14 23:27 | Outpatient (CLI) | payer MEDICARE, MEDICAID ==
[~2025-02-14] VITALS: Ht 157.5 cm; Wt 96.1 kg
[2025-02-14] MEDS: CLOTRIMAZOLE 1% VAG CR 45 GM PV SCH (21:00)
[~2025-02-14 23:27] MED LIST changes: -CLOT1CRE56 TOP
[2025-02-14 23:35] VITALS: BP 110/60
[2025-02-14] MEDS: CLOTRIMAZOLE 1% VAG CR 45 GM TOP ONE (23:55)
[2025-02-15] MEDS ORDERED: CLOTRIMAZOLE 1% VAG CR 45 GM TOP SCH (09:00)
[2025-02-15] MEDS ORDERED: CLOT1CRE56 TOP (14:40)
== END 2025-02-15 00:01 | disposition home or self-care (01) ==
LOC: M LDO 23:27
PROVIDERS: ATTEND Student in an Organized Health Care Education/Training Program
DX: O98.312 Other infections with a predominantly sexual mode of transmission complicating pregnancy, second trimester (principal); O34.219 Maternal care for unspecified type scar from previous cesarean delivery; O99.12 Other diseases of the blood and blood-forming organs and certain disorders involving the immune mechanism complicating childbirth; A60.04 Herpesviral vulvovaginitis; D69.6 Thrombocytopenia, unspecified; Z3A.27 27 weeks gestation of pregnancy
CPT/HCPCS: 59025; G0463

== ENCOUNTER 2025-02-15 14:18 | Outpatient (CLI) | payer MEDICARE, MEDICAID ==
[~2025-02-15] VITALS: Ht 157.5 cm; Wt 95.4 kg
[2025-02-15 14:37] VITALS: BP 129/61; O2SAT 99
[2025-02-15] MEDS ORDERED: CLOT1CRE56 TOP (14:40)
[2025-02-15 15:23] LABS: KETONE, URINE AUTO RFX NEGATIVE (NEGATIVE); MUCUS, URINE RFX SMALL (NEGATIVE); NITRITE, URINE AUTO RFX NEGATIVE (NEGATIVE); RBC, URINE AUTO RFX 0 /HPF (0-3); SQUAM EPITHELIAL CELL UR AURFX 20 /HPF (0-6); WBC, URINE AUTO RFX 0 /HPF (0-3)
[2025-02-15 15:29] LABS: LEUKOCYTE ESTERASE UR AUTO RFX TRACE (NEGATIVE)
[2025-02-15] MEDS ORDERED: HOME MED LIST COMPLETE! XX SCH (15:35)
[2025-02-15 15:41] VITALS: BP 107/64
[2025-02-15 16:20] LABS: Trichomonas vaginalis (AMP) NOT DETECTED (NEGATIVE)
[2025-02-15 16:33] VITALS: BP 120/70
[2025-02-15 16:45] LABS: GC DNA AMPLIFICATION NEGATIVE (NEGATIVE)
[2025-02-15 17:45] VITALS: BP 132/81
[2025-02-15] MEDS: FLUCONAZOLE 50 MG TABLET PO ONE (18:10)
== END 2025-02-15 17:50 | disposition home or self-care (01) ==
LOC: M LDO 14:18
PROVIDERS: ATTEND Obstetrics & Gynecology
DX: O98.312 Other infections with a predominantly sexual mode of transmission complicating pregnancy, second trimester (principal); O34.219 Maternal care for unspecified type scar from previous cesarean delivery; O23.592 Infection of other part of genital tract in pregnancy, second trimester; A60.04 Herpesviral vulvovaginitis; Z3A.27 27 weeks gestation of pregnancy; B37.9 Candidiasis, unspecified; O09.92 Supervision of high risk pregnancy, unspecified, second trimester
CPT/HCPCS: 59025; 81001; 87086; 87255; 87661; 87810; 87850; G0463

== ENCOUNTER → 2025-02-23 | Outpatient (CLI) | payer MEDICARE, MEDICAID ==
[~2025-02-23] MED LIST changes: +CLOT1CRE56 TOP
== END ==
LOC: M LAB 06:33
PROVIDERS: ATTEND Obstetrics & Gynecology
DX: O99.810 Abnormal glucose complicating pregnancy (principal); Z3A.00 Weeks of gestation of pregnancy not specified

== ENCOUNTER → 2025-03-19 | Outpatient (CLI) | payer MEDICARE, MEDICAID | LOC: M WHC 10:34 | PROVIDERS: ATTEND Obstetrics & Gynecology | DX: Z34.93 Encounter for supervision of normal pregnancy, unspecified, third trimester (principal); Z3A.33 33 weeks gestation of pregnancy ==

== ENCOUNTER → 2025-03-23 | Outpatient (REF) | payer MEDICARE, MEDICAID ==
[~2025-03-23] MED LIST changes: +ACET32TAB PO
== END ==
LOC: M LAB REF 17:04
PROVIDERS: ATTEND Physician Assistant Medical
DX: B34.9 Viral infection, unspecified (principal)

== ENCOUNTER 2025-03-26 16:47 | Outpatient (CLI) | payer MEDICARE, MEDICAID ==
[~2025-03-26] VITALS: Ht 157.5 cm; Wt 97.9 kg
[~2025-03-26 16:47] MED LIST changes: -ACET32TAB PO
[2025-03-26] MEDS ORDERED: GABAPENTIN 300 MG CAP PO ONE (18:05)
[2025-03-26] MEDS: ACETAMINOPHEN 325 MG TAB PO PRN (18:22)
[2025-03-26] MEDS ORDERED: ACET32TAB PO (20:21)
== END 2025-03-26 19:56 | disposition home or self-care (01) ==
LOC: M LDO 16:47
PROVIDERS: ATTEND Obstetrics & Gynecology
DX: O26.893 Other specified pregnancy related conditions, third trimester (principal); O36.8130 Decreased fetal movements, third trimester, not applicable or unspecified; O34.219 Maternal care for unspecified type scar from previous cesarean delivery; M54.50 Low back pain, unspecified; Z3A.34 34 weeks gestation of pregnancy
CPT/HCPCS: 59025; G0463

== ENCOUNTER 2025-03-28 11:57 | Outpatient (CLI) | payer MEDICARE, MEDICAID ==
[~2025-03-28] VITALS: Ht 157.5 cm; Wt 96.8 kg
[~2025-03-28 11:57] MED LIST changes: +ACET32TAB PO
[2025-03-28] MEDS ORDERED: METF-839 PO (12:16)
[2025-03-28 12:19] VITALS: BP 108/56
[2025-03-28 13:22] VITALS: BP 117/63
== END 2025-03-28 14:49 | disposition home or self-care (01) ==
LOC: M LDO 11:57
PROVIDERS: ATTEND Obstetrics & Gynecology
DX: O26.893 Other specified pregnancy related conditions, third trimester (principal); O24.410 Gestational diabetes mellitus in pregnancy, diet controlled; O34.211 Maternal care for low transverse scar from previous cesarean delivery; N89.8 Other specified noninflammatory disorders of vagina; Z3A.34 34 weeks gestation of pregnancy
CPT/HCPCS: 59025; 76815; G0463

== ENCOUNTER → 2025-04-07 | Outpatient (REF) | payer MEDICARE, MEDICAID ==
[~2025-04-07] MED LIST changes: +METF-839 PO
== END ==
LOC: M SFHCWAGY 16:47
PROVIDERS: ATTEND Specialist
DX: O24.415 Gestational diabetes mellitus in pregnancy, controlled by oral hypoglycemic drugs (principal); Z3A.36 36 weeks gestation of pregnancy

== ENCOUNTER → 2025-04-13 | Outpatient (CLI) | payer MEDICARE, MEDICAID | LOC: M WHC 10:54 | PROVIDERS: ATTEND Student in an Organized Health Care Education/Training Program | DX: O24.419 Gestational diabetes mellitus in pregnancy, unspecified control (principal) ==